=== PATIENT | male | born 1940 | race Caucasian/White ===

== ENCOUNTER → 2018-10-25 13:00 | Outpatient (CLI) | payer OTHER, SELFPAY ==
--- NOTE | 2018-10-25 13:02 | DI.MRI.S_ITS ---
PROCEDURE: MR LUMBAR SPINE WO CON INDICATIONS: back pain TECHNIQUE: Noncontrast sagittal T1 spin echo and T2 fast echo, sagittal STIR, axial T1 and T2 fast spin echo through the lumbar spine. In cases with scoliosis, additional coronal T2 fast spin echo may be performed. COMPARISON: None. FINDINGS: Image quality: Excellent. Alignment and Curvature: Grade 1 retrolisthesis of L1 on L2, L4 and L5. Trace anterolisthesis of L5 on S1 Bone Marrow: No acute fracture. Multilevel degenerative endplate sclerosis and spurring. Diffuse facet arthropathy. Spinal Cord: Conus medullaris terminates at the L1 level. Visualized cord demonstrates normal signal and size. Paraspinous Soft Tissues: Bilateral renal cortical atrophy and scarring. T2 hyperintense presumed right parapelvic cysts although technically nonspecific. L1-L2: No canal or lateral recess narrowing. Mild bilateral foraminal stenoses. Bilateral facet arthropathy L2-L3: Bilateral facet disease. No definite central canal stenosis. Mild bilateral foraminal stenoses L3-L4: Broad-based posterior disc bulge bilateral facet arthropathy. No definite high-grade central canal narrowing. No definite foraminal stenosis L4-L5: Minimal broad-based posterior disc bulge bilateral facet arthropathy. No definite canal stenosis. Mild bilateral foraminal narrowing L5-S1: There is epidural lipomatosis. Mild central canal narrowing. Mild bilateral foraminal stenoses IMPRESSION: Multilevel lumbar spondylosis and facet arthropathy. No high-grade canal stenosis. Mild diffuse bilateral foraminal narrowing as detailed above by spinal level. Dictated by: Kyle Waters M.D. on 10/25/2018 at 15:18 Approved by: Kyle Waters M.D. on 10/25/2018 at 15:24
== END ==
PROVIDERS: PCP Nurse Practitioner; Visit Provider Physical Medicine & Rehabilitation
DX: M54.5 Low back pain (principal); M47.27 Other spondylosis with radiculopathy, lumbosacral region; M47.816 Spondylosis without myelopathy or radiculopathy, lumbar region; M48.061 Spinal stenosis, lumbar region without neurogenic claudication; M48.07 Spinal stenosis, lumbosacral region
CPT/HCPCS: 72148

== ENCOUNTER → 2019-02-05 10:40 | Outpatient (ROUT) | payer MEDICARE, SELFPAY ==
[2019-02-05 10:54] LABS: Hematocrit 33.6 % (41-53); Hemoglobin 11.1 g/dL (13.5-17.5); Mean Corpuscular HGB Conc 32.9 % (30-36); Mean Corpuscular Hemoglobin 30.7 PG (26-34); Mean Corpuscular Volume 93.4 fL (80-100); Platelet Count 226 X10^3/uL (150-400); Red Cell Distribution Width 14.1 % (11.6-14.8); White Blood Cell Count 4.3 X10^3/uL (4.5-11.0)
[2019-02-05 10:55] LABS: Add Manual Diff / Slide Review YES
[2019-02-05 11:13] LABS: Neutrophils Absolute Manual 903 /uL (3000-5900); Total Cells Counted 100
[2019-02-05 11:14] LABS: RBC Morphology Normal Morphology
[2019-02-05 11:42] LABS: Alanine Aminotransferase 91 IU/L (<50); Albumin 3.6 g/dL (3.5-5.0); Albumin Globulin Ratio 1.1 (1.0-2.8); Alkaline Phosphatase 106 U/L (38-126); Aspartate Aminotransferase 54 IU/L (17-59); BUN Creatinine Ratio 21.1 (6-22); Bilirubin Total 0.4 mg/dL (0.2-1.3); Blood Urea Nitrogen 38 mg/dL (9-20); Calcium 9.1 mg/dL (8.4-10.2); Carbon Dioxide 24 mmol/L (22-32); Chloride 108 mmol/L (98-107); Estimated Glomerular Filt Rate 36.7 mL/min (>60); Globulin 3.2 g/dL (1.7-4.1); Glucose 115 mg/dL (80-110); HEMOLYSIS < 15 (0-50); Potassium 5.2 mmol/L (3.4-5.1); Sodium 139 mmol/L (137-145); Total Protein 6.8 g/dL (6.3-8.2)
[2019-02-07 17:37] LABS: CMV DNA, Quant PCR LOG 10 3.33 Log IU/mL; CMV DNA, Quant Real Time PCR 2162 IU/mL; Source BL
== END ==
PROVIDERS: PCP Nurse Practitioner
DX: D70.9 Neutropenia, unspecified (principal); Z94.0 Kidney transplant status; B25.9 Cytomegaloviral disease, unspecified
CPT/HCPCS: 80053; 85025; 87497

== ENCOUNTER → 2019-02-12 10:46 | Outpatient (ROUT) | payer MEDICARE, SELFPAY ==
[2019-02-12 10:59] LABS: Add Manual Diff / Slide Review NO; Basophils Absolute Auto 100 /uL (0-100); Basophils Percent Auto 2.9 % (0-2); Eosinophils Absolute Auto 200 /uL (0-450); Eosinophils Percent Auto 6.1 % (2-4); Hematocrit 32.5 % (41-53); Hemoglobin 10.8 g/dL (13.5-17.5); Lymphocytes Absolute Auto 2300 /uL (1100-4500); Lymphocytes Percent Auto 59.1 % (25-40); Mean Corpuscular HGB Conc 33.4 % (30-36); Mean Corpuscular Hemoglobin 30.8 PG (26-34); Mean Corpuscular Volume 92.2 fL (80-100); Monocytes Absolute Auto 400 /uL (0-900); Neutrophils Absolute Auto 800 /uL (1500-7000); Neutrophils Percent Auto 20.9 % (50-75); Platelet Count 304 X10^3/uL (150-400); Red Blood Cell Count 3.52 X10^6/uL (4.5-5.9); Red Cell Distribution Width 14.2 % (11.6-14.8); White Blood Cell Count 3.8 X10^3/uL (4.5-11.0)
[2019-02-12 11:20] LABS: Alanine Aminotransferase 31 IU/L (<50); Albumin 3.7 g/dL (3.5-5.0); Alkaline Phosphatase 90 U/L (38-126); Aspartate Aminotransferase 26 IU/L (17-59); BUN Creatinine Ratio 22.1 (6-22); Bilirubin Total 0.5 mg/dL (0.2-1.3); Blood Urea Nitrogen 42 mg/dL (9-20); Carbon Dioxide 23 mmol/L (22-32); Chloride 108 mmol/L (98-107); Estimated Glomerular Filt Rate 34.5 mL/min (>60); Globulin 3.8 g/dL (1.7-4.1); Glucose 118 mg/dL (80-110); HEMOLYSIS < 15 (0-50); Potassium 4.5 mmol/L (3.4-5.1); Sodium 140 mmol/L (137-145); Total Protein 7.5 g/dL (6.3-8.2)
[2019-02-14 16:50] LABS: CMV DNA, Quant Real Time PCR 705 IU/mL; Source WHOLE BLOOD EDTA
[2019-02-15 08:43] LABS: CMV DNA, Quant PCR LOG 10 2.85 Log IU/mL
== END ==
PROVIDERS: PCP Nurse Practitioner; Visit Provider Internal Medicine Infectious Disease
DX: B25.9 Cytomegaloviral disease, unspecified (principal); D70.9 Neutropenia, unspecified; Z94.0 Kidney transplant status
CPT/HCPCS: 80053; 85025; 87497

== ENCOUNTER 2019-03-26 06:41 | Outpatient (CLI) | payer OTHER, SELFPAY ==
[2019-03-26] VITALS (8 sets, daily range): BP systolic 126–161; BP diastolic 73–96; PULSE 62–73; RESP 16–20; TEMP 36.4; O2SAT 93–97
--- NOTE | 2019-03-26 06:42 | DI.RAD.S_ITS ---
PROCEDURE: PAIN L/S TRANSFORAMINAL INJECT INDICATIONS: INTERVERTEBRAL DISC DISPLACMENT FINDINGS: Fluoroscopic spot filming was performed to verify placement of spinal needles at the L4-L5 level(s), as labeled on the films. Appropriate location(s) of the needle tip(s) was confirmed by injection of iodinated contrast. IMPRESSION: Fluoroscopy for pain management. Dictated by: Rena Guzmán M.D. on 03/26/2019 at 9:18 Approved by: Rena Guzmán M.D. on 03/26/2019 at 9:20
[2019-03-26] MEDS: MIDAZOLAM 5 MG/5 ML VIAL IV (08:05)
[2019-03-26] MEDS: IOPAMIDOL 15 ML VIAL 3 ML INJ (08:12)
[2019-03-26] MEDS: BETAMETHASONE 30 MG/5 ML MDV 6 MG INJ (08:12)
[2019-03-26] MEDS: BUPIVACAINE 0.25% (PF) VIAL 2 ML INJ (08:12)
[2019-03-26] MEDS: DEXAMETHASONE 10 MG/ML VIAL 20 MG INJ (08:13)
--- NOTE | 2019-03-26 08:14 | PC.NURSE ---
ASSISTING PT OFF TABLE AND TRANSPORTING TO POST PROC AREA IN STABLE CONDITION. PASSING RN CARE OF PT OFF TO [facility].
--- NOTE | 2019-03-26 08:21 | P.PCN_ITS ---
Procedures Date/Time Date of procedure: 03/26/19 Time of procedure: 08:21 General Procedure description: PREOP DIAGNOSIS 1. FORMAINAL STENOSIS WITH LE SYMPTOMS POST OP DIAGNOSIS 1. FORMAINAL STENOSIS WITH LE SYMPTOMS PROCEDURES 1. FLUOROSCOPICALLY GUIDED CONTRAST CONTROLLED TRANSFORAMINAL EPIDURAL STEROID INJECTION - LEFT L4/5 PHYSICIAN: Luis Jaeger DO INDICATIONS: Candelario is referred by Dr. Patel for treatment of Foraminal Stenosis with Left LE Symptoms FINDINGS Foraminal Nerve Root Compression secondary to disc disease and facet hypertrophy DESCRIPTION OF PROCEDURE: Following review of allergy and review of potential side effects and complications, including, but not necessarily limited to, infection, allergic reaction, local tissue breakdown, stroke, temporary or permanent nerve injury, paralysis, and possible , the patient indicated that the patient understood and agreed to proceed. An informed consent document was signed by the patient, witnessed by a nurse, and placed in the patient's chart. Additionally, other treatment options including medications, modalities, and physical therapy were reviewed with the patient. After review of previous anaesthesic history and IV conscious sedation the padma ent was deemed safe to proceed with todays procedure with IV conscious sedation as ASA class II designation. Safety time-out was performed to confirm patient ID, procedure to be performed and site of procedure. IV sedation was accomplished with 2mg of Versed administered by the RN after DO order, titrated to patient comfort during the course of the procedure while the patient remained responsive to all verbal commands In the prone position following sterile prep and drape of the lumbar region, the left L4/5 posterior neuroforamen was identified fluoroscopically. The skin was anesthetized via a 25-gauge 1.5-inch needle with 1% lidocaine solution. At this point, a 25-gauge 3.5-inch spinal needle was atraumatically introduced and advanced under fluoroscopic guidance through the posterior left L4/5 neuroforamen to approximately the anterior aspect of the canal. Depth was confirmed on lateral view. Following negative aspiration, injection of approximately 1.5 cc of Isovue 200 under live fluoroscopy in the AP view confirmed excellent flow along the nerve root, into the epidural space without vascular or intrathecal uptake observed Radiological data, including multiple fluoroscopic views of the lumbosacral spine, reveal a spinal needle at the left L4/5 posterior neuroforamen. Subsequent views show flow of contrast material flowing superiorly and inferiorly along the nerve root confirming epidural flow. Subsequently, a test dose of 1.5 cc of 1% lidocaine solution was administered and patient was observed for two minutes for signs or symptoms of complications, including abdominal pain, shortness of breath, bilateral upper or lower extremity weakness, nausea and vomiting, prior to steroid injection. At this point, a total of 3cc or 20mg of dexamethasone and 6mg of betamethasone was injected without incident. The procedure tolerated the procedure well without signs or symptoms of complications prior to transfer to the recovery area continued monitoring witho ut incident. The patient was then transferred to the recovery area where they were observed for an appropriate time after the injection. The patient reported a VAS score of 7 prior to the procedure and a post- procedure VAS of 0. Total Fluoroscopy Time: 20.9 seconds Total Conscious Sedation Time: 24min POST OP INSTRUCTIONS The patient was provided a Pain Log to continue to record their response to the target-specific procedure prior to follow-up visit with their referring physician. Additionally, specific post-injection care instructions and a contact number to our office were provided if concerns arise regarding possible complications associated with the procedure are suspected. Luis Jaeger DO Complications: none
== END 2019-03-26 08:41 | disposition home or self-care (01) ==
LOC: RAD 06:42
PROVIDERS: PCP Nurse Practitioner; Visit Provider Physical Medicine & Rehabilitation
DX: M48.061 Spinal stenosis, lumbar region without neurogenic claudication (principal); M51.16 Intervertebral disc disorders with radiculopathy, lumbar region
CPT/HCPCS: 64483; 99152; J0702; J1100; J2250; J3010

== ENCOUNTER → 2019-06-04 11:06 | Outpatient (CLI) | payer OTHER, SELFPAY ==
--- NOTE | 2019-06-04 | DI.CT.S_ITS ---
PROCEDURE: CT CHEST WO CON INDICATIONS: Aneurysm TECHNIQUE: Noncontrast 5 mm thick sections acquired from the pulmonary apices to the posterior costophrenic angles. 1 mm lung window, 5 mm thick coronal and sagittal and 7 mm axial MIP reformats were then acquired. For radiation dose reduction, the following was used: automated exposure control, adjustment of mA and/or kV according to patient size. COMPARISON: None. FINDINGS: Image quality: Excellent. Lungs and pleura: Nodule 1: Series 3 image 158; RML; 4 mm; solid Nodule 3: Series 3 image 183; R minor fissure; 6 mm; solid Nodule 3: Series 3 image 196; RRL; 4 mm; solid Nodule 4: Series 3 image 198; LLL; 5 mm; solid No acute air space opacities. No pleural effusions or pneumothorax. Central and peripheral airways are patent and normal in caliber. Mediastinum: Heart size is normal. No pericardial effusion. Mild coronary calcification. No mediastinal adenopathy by size criteria. Thoracic aorta is mildly aneurysmal. The ascending thoracic aorta measures up to 4.4 cm AP x 4.6 cm transverse, tapering to 3.8 cm in the proximal aortic arch. The distal aortic arch measures 3.3 cm. The descending thoracic aorta measuring up to 3.1 cm, tapering to 2.6 cm at the diaphragmatic hiatus. There is mild/moderate atherosclerotic calcifications of aorta. The central pulmonary arteries are normal in size. Esophagus is normal in caliber. Tiny hiatal hernia. Bones and chest wall: No suspicious bony lesions. No vertebral body compression fractures. No axillary or supraclavicular adenopathy by size criteria. Thyroid gland is normal. Abdomen: Visualized upper abdominal solid organs and bowel loops appear normal in the absence of contrast. Kidneys are atrophic bilaterally. IMPRESSION: 1. Mild aneurysmal thoracic aorta. 2. Moderate atherosclerosis. 3. Multiple pulmonary nodules. Please see enclosed followup recommendation. 4. Bilateral renal atrophy. Fleischner Society criteria for SOLID lung nodule followup. Nodule size (mm)Low-risk patientHigh-risk patient?4No follow-up neededFollow-up at 12 mo; if no change, no further follow-up>[id number] CT at 12 mo; if no change, no further follow-up needed.Initial follow-up CT at 6-12 mo, then 18-24 mo if no change. >6-8Initial follow-up CT at 6-12 mo, then 18-24 mo if no change. Initial follow-up CT at 3-6 mo, then 9-12 mo and 24 mo if no change. >8Follow-up CT at 3, 9, 24 mo. Or PET and/or biopsy.Same as for low-risk pts. Dictated by: Rena Guzmán M.D. on 06/04/2019 at 11:53 Approved by: Rena Guzmán M.D. on 06/04/2019 at 18:23
--- NOTE | 2019-06-04 11:12 | DI.CT.S_ITS ---
PROCEDURE: CT HEAD/BRAIN WO CON INDICATIONS: black outs TECHNIQUE: Noncontrast 4.5 mm thick angled axial sections acquired from the foramen magnum to the vertex, with coronal and sagittal reformats. For radiation dose reduction, the following was used: automated exposure control, adjustment of mA and/or kV according to patient size. COMPARISON: None. FINDINGS: Image quality: Excellent. CSF spaces: Basal cisterns are patent. No extra-axial fluid collections. The ventricles are symmetric in size and shape. Brain: No intracranial bleeds or masses. There is moderate cerebral volume loss for age, with resultant ventricular and sulcal prominence. There are moderate periventricular and deep white matter chronic small vessel ischemic changes. There is intracranial internal carotid artery atherosclerosis. Skull and face: Calvarium and visualized facial bones appear intact, without suspicious lesions. Sinuses: Visualized sinuses and mastoids are clear. IMPRESSION: 1. No acute intracranial abnormalities. 2. Cerebral volume loss and chronic microvascular ischemic changes. Dictated by: Rena Guzmán M.D. on 06/04/2019 at 11:33 Approved by: Rena Guzmán M.D. on 06/04/2019 at 11:36
== END ==
PROVIDERS: PCP Nurse Practitioner; Referring Provider Nurse Practitioner; Visit Provider Nurse Practitioner
DX: R55 Syncope and collapse (principal); I65.29 Occlusion and stenosis of unspecified carotid artery; I71.2 Thoracic aortic aneurysm, without rupture; I70.0 Atherosclerosis of aorta; R91.8 Other nonspecific abnormal finding of lung field; N26.1 Atrophy of kidney (terminal); Z01.89 Encounter for other specified special examinations
CPT/HCPCS: 70450; 71250

== ENCOUNTER → 2019-12-25 14:09 | Outpatient (CLI) | payer MEDICARE, OTHER, SELFPAY ==
--- NOTE | 2019-12-25 14:13 | DI.RAD.S_ITS ---
PROCEDURE: XR CLAVICLE RT INDICATIONS: shoulder injury, r/o fx/dislocation TECHNIQUE: 2 views of the clavicle were acquired. COMPARISON: None. FINDINGS: Bones: No fractures. Acromioclavicular joint is widened. Mild acromioclavicular joint osteoarthritic degenerative changes. Soft tissues: No suspicious soft tissue calcifications. IMPRESSION: Acromioclavicular joint is widened to 10 millimeters compatible with type 1 AC joint separation. Dictated by: eKnyatta Sen MD, PhD on 12/25/2019 at 14:35 Approved by: Kenyatta Sen MD, PhD on 12/25/2019 at 14:36
--- NOTE | 2019-12-25 14:13 | DI.RAD.S_ITS ---
PROCEDURE: XR SHOULDER RT MIN 2V INDICATIONS: shoulder injury, r/o fx/dislocation TECHNIQUE: 3 views of the shoulder were acquired. COMPARISON: None. FINDINGS: Bones: No fractures or dislocations. No suspicious bony lesions. Visualized ribs appear intact. Mild acromioclavicular joint and glenohumeral joint osteoarthritis. Soft tissues: No suspicious soft tissue calcifications. IMPRESSION: No fracture. No osseous lesion. If symptoms and/or clinical suspicion for pathology persists, further assessment with repeat radiographs (7-10 days) or advanced imaging (e.g. CT, MRI or bone scan) may be helpful. Dictated by: Kenyatta Sen MD, PhD on 12/25/2019 at 14:34 Approved by: Kenyatta Sen MD, PhD on 12/25/2019 at 14:34
--- NOTE | 2019-12-25 14:13 | DI.RAD.S_ITS ---
PROCEDURE: XR HUMERUS RT 2V INDICATIONS: shoulder injury, r/o fx/dislocation TECHNIQUE: To views of the humerus were acquired. COMPARISON: None. FINDINGS: Bones: No fractures or dislocations. No suspicious bony lesions. Soft tissues: No suspicious soft tissue calcifications. IMPRESSION: No fracture. No osseous lesion. If symptoms and/or clinical suspicion for pathology persists, further assessment with repeat radiographs (7-10 days) or advanced imaging (e.g. CT, MRI or bone scan) may be helpful. Dictated by: Kenyatta Sen MD, PhD on 12/25/2019 at 14:36 Approved by: Kenyatta Sen MD, PhD on 12/25/2019 at 14:38
== END ==
PROVIDERS: PCP Nurse Practitioner; Referring Provider Physician Assistant; Visit Provider Physician Assistant
DX: S49.91XA Unspecified injury of right shoulder and upper arm, initial encounter (principal); M19.011 Primary osteoarthritis, right shoulder; X58.XXXA Exposure to other specified factors, initial encounter
CPT/HCPCS: 73000; 73030; 73060

== ENCOUNTER → 2020-01-08 15:22 | Outpatient (CLI) | payer MEDICARE, OTHER, SELFPAY ==
--- NOTE | 2020-01-08 | DI.MRI.S_ITS ---
PROCEDURE: MR SHOULDER RT WO CON INDICATIONS: Unspecified rotator cuff tear or rupture of right TECHNIQUE: Noncontrast oblique coronal T2 fast spin echo with fat saturation, oblique sagittal T1 spin echo and T2 fast spin echo with fat saturation, axial T1 spin echo and T2 fast spin echo with fat saturation through the shoulder. COMPARISON: None. FINDINGS: Image quality: Excellent. Rotator cuff: Large full-thickness tear of the supraspinatus and infraspinatus tendons is noted measuring approximately 6.4 cm in the AP dimension on sagittal image 13/9. Teres minor tendinopathy and interstitial tearing is present. Subscapularis tendinopathy and thickening noted. Atrophy of the supraspinatus muscle. There is mild fatty infiltration of the infraspinatus muscle Bones and bursae: No bone marrow contusions or fractures. Severe acromioclavicular joint degeneration. Glenohumeral degenerative changes also noted Acromion demonstrates conventional anatomy, without an os acromiale. Moderate joint effusion Capsule and soft tissues: Labrum: Ill-defined fraying of the superior and posterior labrum. Long head of the biceps tendon intact. Partial obliteration of the subcoracoid fat. Coracohumeral ligament intact. IMPRESSION: Large full-thickness tear involving the supraspinatus and infraspinatus tendons. Atrophy of the supraspinatus muscle . Subscapularis tendinopathy and thickening Teres minor tendinopathy and interstitial tearing. Chronic appearing tear and blunting of the superior and posterior labrum, versus advanced degeneration. Joint effusion Dictated by: Kyle Waters M.D. on 01/08/2020 at 17:26 Approved by: Kyle Waters M.D. on 01/08/2020 at 17:31
== END ==
PROVIDERS: PCP Nurse Practitioner; Referring Provider Orthopaedic Surgery; Visit Provider Orthopaedic Surgery
DX: M75.121 Complete rotator cuff tear or rupture of right shoulder, not specified as traumatic (principal); M19.011 Primary osteoarthritis, right shoulder; M25.411 Effusion, right shoulder
CPT/HCPCS: 73221

== ENCOUNTER 2022-08-23 11:33 | Emergency (ER) | payer MEDICARE, OTHER, SELFPAY ==
[2022-08-23] VITALS (15 sets, daily range): BP systolic 152–196; BP diastolic 83–103; PULSE 59–72; RESP 14–27; TEMP 36.7; O2SAT 92–96
--- NOTE | 2022-08-23 11:56 | DI.RAD.S_ITS ---
PROCEDURE: XR SHOULDER RT MIN 2V INDICATIONS: fall TECHNIQUE: 2 views of the shoulder were acquired. COMPARISON: [facility], CR, XR SHOULDER RT MIN 2V, 12/25/2019, 14:12. FINDINGS: Bones: No fractures or dislocations. No suspicious bony lesions. Visualized ribs appear intact. Soft tissues: No suspicious soft tissue calcifications. IMPRESSION: No acute bony abnormality. Dictated by: Jon Painting M.D. on 08/23/2022 at 12:40 Approved by: Jon Painting M.D. on 08/23/2022 at 12:40
--- NOTE | 2022-08-23 11:56 | DI.CT.S_ITS ---
PROCEDURE: CT HEAD/BRAIN WO CON INDICATIONS: fall TECHNIQUE: Noncontrast 4.5 mm thick angled axial sections acquired from the foramen magnum to the vertex, with coronal and sagittal reformats. For radiation dose reduction, the following was used: automated exposure control, adjustment of mA and/or kV according to patient size. COMPARISON: [facility], CT, CT HEAD WITHOUT CONTRAST, 06/07/2021, 14:03. [facility], CT, CT HEAD/BRAIN WO CON, 06/04/2019, 11:10. FINDINGS: Image quality: Excellent. CSF spaces: Basal cisterns are patent. No extra-axial fluid collections. Ventricles are normal in size and shape. Brain: No midline shift. No intracranial masses or hemorrhage. No area of hypodensity in a large vascular distribution to suggest acute infarction. Periventricular hypodensity consistent with chronic microvascular ischemic change. Age-related parenchymal loss. Skull and face: Calvarium and visualized facial bones are intact, without suspicious lesions. Sinuses: Visualized sinuses and mastoids are clear. IMPRESSION: No acute intracranial abnormality. Dictated by: Ruben Decker M.D. on 08/23/2022 at 12:59 Approved by: Ruben Decker M.D. on 08/23/2022 at 13:01
--- NOTE | 2022-08-23 11:56 | DI.RAD.S_ITS ---
PROCEDURE: XR CHEST 1V INDICATIONS: fall TECHNIQUE: One view of the chest was acquired. COMPARISON: None. FINDINGS: Surgical changes and devices: None. Lungs and pleura: Lungs are clear. No pleural effusions or pneumothorax. Mediastinum: Mediastinal contours appear normal. Heart size is enlarged. Bones and chest wall: No suspicious bony lesions. Overlying soft tissues appear unremarkable. IMPRESSION: No displaced fracture or pneumothorax. Dictated by: Jon Painting M.D. on 08/23/2022 at 12:39 Approved by: Jon Painting M.D. on 08/23/2022 at 12:40
--- NOTE | 2022-08-23 11:59 | ED.FALL ---
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 He reports that he was going down the stairs he was carrying his dog he had his hand on the railing when the next thing he knew he would fallen down about 5 stairs to the bottom of the staircase. tried to help get him up he eventually made it up. However he was in severe pain throughout the night. Really complaining of some right shoulder pain. Now he feels dizzy and lightheaded. He is having some cervical pain. No nausea vomiting numbness tingling or weakness. He does take aspirin daily no fever or chills. Related Data Home Medications Medication Instructions Recorded Confirmed Fresh garlic 1 tbsp PO .qday 07/30/18 12/25/19 amlodipine 5 mg tablet 5 mg PO BID 02/27/19 12/25/19 aspirin 81 mg chewable tablet 81 mg PO DAILY 02/27/19 12/25/19 chlorthalidone 25 mg tablet 12.5 mg PO DAILY 02/27/19 12/25/19 multivitamin 1 tab PO DAILY 02/27/19 12/25/19 prednisone 5 mg tablet 5 mg PO DAILY 02/27/19 12/25/19 tacrolimus 1 mg capsule, 2 mg PO Q12H 02/27/19 12/25/19 immediate-release tamsulosin 0.4 mg capsule (Flomax) 0.8 mg PO DAILY 04/09/19 12/25/19 losartan 25 mg tablet 50 mg PO DAILY 08/16/20 08/16/20 Previous Rx's Medication Instructions Recorded benzonatate 200 mg capsule 200 mg PO TID PRN cough #20 caps 08/21/22 Allergies Allergy/AdvReac Type Severity Reaction Status Date / Time lisinopril AdvReac Intermediate Verified 08/23/22 11:49 primidone AdvReac Intermediate Verified 08/23/22 11:49 simvastatin AdvReac Intermediate Verified 08/23/22 11:49 zolpidem [From Ambien] AdvReac Intermediate Verified 08/23/22 11:49 tree pollen Allergy Intermediate Uncoded 08/21/22 12:48 Review of Systems Review of Systems ROS Unobtainable: All systems reviewed & are unremarkable except as noted in HPI and below Patient History Medical History Acromioclavicular joint separation, type 1 Facet arthropathy, lumbar Other intervertebral disc displacement, lumbosacral region Right shoulder injury Family History Mother Heart disease Father Stroke Social History marital status: Smoking Status: Never smoker alcohol intake: former Smoking Status: Never smoker alcohol intake frequency: 0-2 drinks per day Substance Use Type: does not use Exam Initial Vital Signs Initial Vital Signs: Vital Signs Temperature 98.1 F 08/23/22 11:44 Pulse Rate 70 08/23/22 11:44 Respiratory Rate 14 08/23/22 11:44 Blood Pressure 178/83 H 08/23/22 11:44 Pulse Oximetry 94 08/23/22 11:44 Oxygen Delivery Method Room Air 08/23/22 11:44 GENERAL: Alert pleasant well-appearing 82-year-old male HEENT: Head atraumatic,EOMI, pupils reactive, face symmetric, moist mucous membranes NECK: Cervical collar in voice mild vertebral tenderness CARDIOVASCULAR: Regular rate and rhythm without murmurs, rubs or gallops. RESPIRATORY: Breath sounds equal bilaterally, no wheezes rales or rhonchi. ABDOMEN: Soft, nontender. Normoactive bowel sounds all 4 quadrants. No guarding or rebound. EXTREMITIES: Normal range of motion, no clubbing or edema. 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 Course Orders Ordered: ED Orders 08/23/22 11:55 Complete Blood Count AUTO DIFF Stat Comprehensive Metabolic Panel Stat Lipase Stat Troponin & CK Cardiac Panel Stat 08/23/22 11:56 CT head/brain wo con Stat Chest [XR chest 1V] Stat XR shoulder RT min 2V Stat 08/23/22 11:58 EKG-12 Lead Stat 08/23/22 12:31 CT cervical spine wo con Stat Vital Signs Vital signs: Vital Signs - 8 hr 08/23/22 11:44 08/23/22 11:56 08/23/22 11:58 Temperature 98.1 F Pulse Rate 70 72 68 Respiratory Rate 14 25 H Blood Pressure 178/83 H Pulse Oximetry 94 94 94 Oxygen Delivery Method Room Air 08/23/22 11:58 08/23/22 12:00 08/23/22 12:00 Temperature Pulse Rate 69 Respiratory Rate 22 Blood Pressure 188/103 H 174/90 H Pulse Oximetry 94 Oxygen Delivery Method 08/23/22 12:10 08/23/22 12:10 08/23/22 12:20 Temperature Pulse Rate 67 Respiratory Rate 17 Blood Pressure 152/87 H 162/94 H Pulse Oximetry 92 Oxygen Delivery Method 08/23/22 12:20 08/23/22 12:37 08/23/22 12:38 Temperature Pulse Rate 68 72 66 Respiratory Rate 17 26 H 23 Blood Pressure Pulse Oximetry 92 96 95 Oxygen Delivery Method 08/23/22 12:38 08/23/22 12:40 08/23/22 12:40 Temperature Pulse Rate 65 Respiratory Rate 22 Blood Pressure 196/101 H 166/95 H Pulse Oximetry 94 Oxygen Delivery Method 08/23/22 12:50 08/23/22 12:50 08/23/22 13:00 Temperature Pulse Rate 60 Respiratory Rate 27 H Blood Pressure 164/94 H 162/98 H Pulse Oximetry 93 Oxygen Delivery Method 08/23/22 13:00 08/23/22 13:10 08/23/22 13:10 Temperature Pulse Rate 61 62 Respiratory Rate 22 20 Blood Pressure 167/103 H Pulse Oximetry 94 92 Oxygen Delivery Method 08/23/22 13:20 08/23/22 13:20 08/23/22 13:30 Temperature Pulse Rate 68 Respiratory Rate 17 Blood Pressure 167/95 H 165/100 H Pulse Oximetry 93 Oxygen Delivery Method 08/23/22 13:30 08/23/22 13:40 08/23/22 13:40 Temperature Pulse Rate 59 L 60 Respiratory Rate 21 19 Blood Pressure 164/94 H Pulse Oximetry Oxygen Delivery Method MDM - Fall Lab Data 08/23/22 11:55 08/23/22 11:55 Labs: Lab Results 08/23/22 08/23/22 Range/Units 11:55 11:55 WBC 9.7 (4.5-11.0) X10^3/uL RBC 5.30 (4.5-5.9) X10^6/uL Hgb 15.5 (13.5-17.5) g/dL Hct 46.5 (41-53) % MCV 87.7 (80-100) fL MCH 29.2 (26-34) PG MCHC 33.3 (30-36) % RDW 13.7 (11.6-14.8) % Plt Count 213 (150-400) X10^3/uL Neut % (Auto) 68.7 (50-75) % Lymph % (Auto) 21.3 L (25-40) % Alpine % (Auto) 6.9 (3-14) % Eos % (Auto) 2.1 (2-4) % Baso % (Auto) 1.0 (0-2) % Neut # (Auto) 6700 (4993-2491) /uL Lymph # (Auto) 2100 (5237-2835) /uL Alpine # (Auto) 700 (0-900) /uL Eos # (Auto) 200 (0-450) /uL Baso # (Auto) 100 (0-100) /uL Sodium 136 L (137-145) mmol/L Potassium 4.0 (3.4-5.1) mmol/L Chloride 107 (98-107) mmol/L Carbon Dioxide 20 L (22-32) mmol/L BUN 41 H (9-20) mg/dL Creatinine 1.61 H (0.66-1.25) mg/dL Estimated GFR 43 L (>60) mL/min BUN/Creatinine Ratio 25.5 H (6-22) Glucose 126 H (80-110) mg/dL Calcium 9.0 (8.4-10.2) mg/dL Total Bilirubin 0.8 (0.2-1.3) mg/dL AST 20 (17-59) IU/L ALT 28 (<50) IU/L Alkaline Phosphatase 67 (38-126) U/L Total Creatine Kinase 37 L (55-170) U/L CK-MB (CK-2) TNP CK-MB (CK-2) Rel Index TNP Troponin I < 0.012 (0.01-0.034) ng/mL Total Protein 7.3 (6.3-8.2) g/dL Albumin 4.2 (3.5-5.0) g/dL Globulin 3.1 (1.7-4.1) g/dL Albumin/Globulin Ratio 1.4 (1.0-2.8) Lipase 102 (23-300) U/L Imaging Data CT scan - head: Radiologist's Impression: PROCEDURE:? CT HEAD/BRAIN WO CON ? INDICATIONS:? fall ? TECHNIQUE:? Noncontrast 4.5 mm thick angled axial sections acquired from the foramen magnum to the vertex, with coronal and sagittal reformats.? For radiation dose reduction, the following was used:? automated exposure control, adjustment of mA and/or kV according to patient size.? ? COMPARISON:? [facility], CT, CT HEAD WITHOUT CONTRAST, 06/07/2021, 14:03.? [facility], CT, CT HEAD/BRAIN WO CON, 06/04/2019, 11:10. ? FINDINGS:? Image quality:? Excellent.? ? CSF spaces:? Basal cisterns are patent.? No extra-axial fluid collections.? Ventricles are normal in size and shape.? ? Brain:? No midline shift.? No intracranial masses or hemorrhage.? No area of hypodensity in a large vascular distribution to suggest acute infarction. Periventricular hypodensity consistent with chronic microvascular ischemic change. Age-related parenchymal loss. ? Skull and face:? Calvarium and visualized facial bones are intact, without suspicious lesions.? ? Sinuses:? Visualized sinuses and mastoids are clear.? ? IMPRESSION:? No acute intracranial abnormality. ? ? Dictated by: Ruben Decker M.D. on 08/23/2022 at 12:59 ? CT - cervical spine: Radiologist's Impression: PROCEDURE:? CT CERVICAL SPINE WO CON ? INDICATIONS:? fall ? TECHNIQUE:? Noncontrast 3 mm thick sections acquired from the skull base to the T4 level.? Sagittal and coronal reformats were then constructed.? For radiation dose reduction, the following was used:? automated exposure control, adjustment of mA and/or kV according to patient size.? ? COMPARISON:? None. ? FINDINGS:? Image quality:? Excellent.? ? Bones:? No fractures or dislocations.? Mild to moderate degenerative change in the cervical spine.? Visualized superior ribs are intact.? ? Soft tissues:? Prevertebral soft tissues are normal in thickness.? No paravertebral hematomas.? No apical pneumothoraces.? ? ? IMPRESSION:? No acute osseous abnormality. ? ? Dictated by: Ruben Decker M.D. on 08/23/2022 at 13:08 ? ? Approved by: Ruben Decker M.D. on 08/23/2022 at 13:10 ? Extremity x-ray #1: Radiologist's Impression: PROCEDURE:? XR SHOULDER RT MIN 2V ? INDICATIONS:? fall ? TECHNIQUE:? 2 views of the shoulder were acquired.? ? COMPARISON:? [facility], , XR SHOULDER RT MIN 2V, 12/25/2019, 14:12. ? FINDINGS:? ? Bones:? No fractures or dislocations.? No suspicious bony lesions.? Visualized ribs appear intact.? ? Soft tissues:? No suspicious soft tissue calcifications.? ? IMPRESSION:? No acute bony abnormality.? Dictated by: Jon Painting M.D. on 08/23/2022 at 12:40 ? Chest x-ray: Radiologist's Impression: PROCEDURE:? XR CHEST 1V ? INDICATIONS:? fall ? TECHNIQUE:? One view of the chest was acquired.? ? COMPARISON:? None. ? FINDINGS:? ? Surgical changes and devices:? None.? ? Lungs and pleura:? Lungs are clear.? No pleural effusions or pneumothorax.? ? Mediastinum:? Mediastinal contours appear normal.? Heart size is enlarged.? ? Bones and chest wall:? No suspicious bony lesions.? Overlying soft tissues appear unremarkable.? ? IMPRESSION:? No displaced fracture or pneumothorax. ? ? ? Dictated by: Jon Painting M.D. on 08/23/2022 at 12:39 ? ? [facility] Narrative Medical decision making narrative: Patient 82-year-old male who presents after what like a possible mechanical fall yesterday down stairs. Complaining of right shoulder pain. And some neck pain. Imaging head cervical spine chest x-ray and shoulder do not show any abnormality. Blood work is overall reassuring. No need for any further workup today. No evidence of infection. Creatinine is actually improved from previous today 1.6 previously 1.9. No significant leukocytosis or electrolyte abnormality. At this time it sounds the patient had a mechanical fall without any significant injury. He does not want anything more than Tylenol for pain. Discharge Plan Departure Patient Disposition: Home Clinical Impression: Sprain of shoulder, right, Cervical sprain Instructions: Whiplash, DI for Shoulder Sprain Activity Restrictions/Additional Instructions: *You have been diagnosed with cervical strain, right shoulder sprain *What to do: At this time no injuries blood work is reassuring, expect to be sore for the next couple of days. Increase activity as tolerated strenuous activity not recommended some movement will help *Continue to take medications as directed Tylenol as needed for pain *Follow up with your primary care provider in 2-3 days or call [phone] *Return to ER if you should have increasing pain numbness tingling weakness confusion or any new, worsening or concerning symptoms Prescriptions: No Action benzonatate 200 mg capsule 200 mg PO TID PRN (Reason: cough) Qty: 20 0RF Fresh garlic 1 tbsp PO .qday tacrolimus 1 mg capsule 2 mg PO Q12H prednisone 5 mg tablet 5 mg PO DAILY multivitamin Tablet 1 tab PO DAILY chlorthalidone 25 mg tablet 12.5 mg PO DAILY amlodipine 5 mg tablet 5 mg PO BID aspirin 81 mg tablet,chewable 81 mg PO DAILY tamsulosin [Flomax] 0.4 mg capsule 0.8 mg PO DAILY losartan 25 mg tablet 50 mg PO DAILY Referrals: Sangeeta Patel ARNP [Primary Care Provider] - Stand Alone Forms: Patient Portal/API
[2022-08-23 12:06] LABS: Add Manual Diff / Slide Review NO; Basophils Absolute Auto 100 /uL (0-100); Eosinophils Absolute Auto 200 /uL (0-450); Eosinophils Percent Auto 2.1 % (2-4); Hematocrit 46.5 % (41-53); Hemoglobin 15.5 g/dL (13.5-17.5); Lymphocytes Absolute Auto 2100 /uL (1100-4500); Lymphocytes Percent Auto 21.3 % (25-40); Mean Corpuscular HGB Conc 33.3 % (30-36); Mean Corpuscular Hemoglobin 29.2 PG (26-34); Mean Corpuscular Volume 87.7 fL (80-100); Monocytes Absolute Auto 700 /uL (0-900); Monocytes Percent Auto 6.9 % (3-14); Neutrophils Absolute Auto 6700 /uL (1500-7000); Neutrophils Percent Auto 68.7 % (50-75); Platelet Count 213 X10^3/uL (150-400); Red Cell Distribution Width 13.7 % (11.6-14.8); White Blood Cell Count 9.7 X10^3/uL (4.5-11.0)
[2022-08-23 12:18] LABS: Alanine Aminotransferase 28 IU/L (<50); Albumin 4.2 g/dL (3.5-5.0); Albumin Globulin Ratio 1.4 (1.0-2.8); Alkaline Phosphatase 67 U/L (38-126); Aspartate Aminotransferase 20 IU/L (17-59); BUN Creatinine Ratio 25.5 (6-22); Bilirubin Total 0.8 mg/dL (0.2-1.3); Blood Urea Nitrogen 41 mg/dL (9-20); Carbon Dioxide 20 mmol/L (22-32); Chloride 107 mmol/L (98-107); Creatine Kinase 37 U/L (55-170); Estimated Glomerular Filt Rate 43 mL/min (>60); Globulin 3.1 g/dL (1.7-4.1); Glucose 126 mg/dL (80-110); HEMOLYSIS 18 (0-50); Lipase 102 U/L (23-300); Sodium 136 mmol/L (137-145); Total Protein 7.3 g/dL (6.3-8.2)
[2022-08-23 12:29] LABS: Troponin I < 0.012 ng/mL (0.01-0.034)
--- NOTE | 2022-08-23 12:31 | DI.CT.S_ITS ---
PROCEDURE: CT CERVICAL SPINE WO CON INDICATIONS: fall TECHNIQUE: Noncontrast 3 mm thick sections acquired from the skull base to the T4 level. Sagittal and coronal reformats were then constructed. For radiation dose reduction, the following was used: automated exposure control, adjustment of mA and/or kV according to patient size. COMPARISON: None. FINDINGS: Image quality: Excellent. Bones: No fractures or dislocations. Mild to moderate degenerative change in the cervical spine. Visualized superior ribs are intact. Soft tissues: Prevertebral soft tissues are normal in thickness. No paravertebral hematomas. No apical pneumothoraces. IMPRESSION: No acute osseous abnormality. Dictated by: Ruben Decker M.D. on 08/23/2022 at 13:08 Approved by: Ruben Decker M.D. on 08/23/2022 at 13:10
== END 2022-08-23 14:06 | disposition home or self-care (01) ==
PROVIDERS: Emergency Provider Emergency Medicine; PCP Nurse Practitioner
DX: S43.401A Unspecified sprain of right shoulder joint, initial encounter (principal); S13.4XXA Sprain of ligaments of cervical spine, initial encounter; R42 Dizziness and giddiness; R03.0 Elevated blood-pressure reading, without diagnosis of hypertension; W10.9XXA Fall (on) (from) unspecified stairs and steps, initial encounter
CPT/HCPCS: 70450; 71045; 72125; 73030; 80053; 82550; 83690; 84484; 85025; 93005; 93010; 99284

== ENCOUNTER → 2023-03-27 12:46 | Outpatient (CLI) | payer MEDICARE, OTHER, SELFPAY ==
--- NOTE | 2023-03-27 12:48 | DI.MRI.S_ITS ---
PROCEDURE: MR SHOULDER RT WO CON INDICATIONS: STRAIN OF RIGHT SHOULDER TECHNIQUE: Noncontrast oblique coronal T2 fast spin echo with fat saturation, oblique sagittal T1 spin echo and T2 fast spin echo with fat saturation, axial T1 spin echo and T2 fast spin echo with fat saturation through the shoulder. COMPARISON: [facility], MR, MR SHOULDER RT WO CON, 01/08/2020, 16:03. FINDINGS: Image quality: Excellent. Rotator cuff: There is full-thickness rupture of distal supraspinatus and infraspinatus at their insertions on humeral head with up to 4.3 cm medial retraction of torn tendon fibers to the level of acromioclavicular joint. Low-grade intrasubstance partial-thickness tear involving distal subscapularis is seen. Sagittal images demonstrate moderate to severe supraspinatus, infraspinatus and teres minor muscle atrophy. Bones and bursae: No bone marrow contusions or fractures. [id number] acromioclavicular joint osteoarthritic changes are seen with joint space narrowing, subchondral sclerosis and downward osteophyte formation depressing the musculotendinous junction of supraspinatus. Superior migration of humeral head in relation to glenoid is noted. The acromion demonstrates conventional anatomy, without an os acromiale. Moderate joint effusion and subacromial subdeltoid bursal fluid is seen, no gross loose bodies. Capsule and soft tissues: Fraying of superior anterior labrum with T2 hyperintense signal at 12 to 2 o'clock position is seen concerning for superior anterior labral tear. The long head of the biceps tendon demonstrates normal location and morphology. The rotator interval appears normal, without fibrosis. The coracohumeral ligament is normal in thickness. IMPRESSION: 1. Full-thickness rupture of distal supraspinatus and infraspinatus at their insertions on the humeral head with up to 4.3 cm medial retraction of torn tendon fibers to the level of acromioclavicular joint. Low-grade intrasubstance partial-thickness tear involving distal subscapularis. Moderate to severe supraspinatus, infraspinatus and teres minor muscle atrophy. 2. [id number] acromioclavicular joint osteoarthritis. No acute fracture or dislocation. Moderate joint effusion and subacromial subdeltoid bursal fluid. No gross loose bodies. 3. Suggestion of superior anterior labral tear at 12 to 2 o'clock position. Dictated by: Rafal Gao M.D. on 03/27/2023 at 14:59 Approved by: Rafal Gao M.D. on 03/27/2023 at 15:06
== END ==
LOC: MRI 12:47
PROVIDERS: PCP Nurse Practitioner; Referring Provider Orthopaedic Surgery; Visit Provider Orthopaedic Surgery
DX: S46.011A Strain of muscle(s) and tendon(s) of the rotator cuff of right shoulder, initial encounter (principal); M19.011 Primary osteoarthritis, right shoulder; M25.411 Effusion, right shoulder; X58.XXXA Exposure to other specified factors, initial encounter
CPT/HCPCS: 73221

== ENCOUNTER → 2023-03-29 14:20 | Outpatient (CLI) | payer MEDICARE, OTHER, SELFPAY ==
[2023-03-29 15:33] LABS: Add Manual Diff / Slide Review NO; Basophils Absolute Auto 0 /uL (0-100); Basophils Percent Auto 0.6 % (0-2); Eosinophils Absolute Auto 100 /uL (0-450); Eosinophils Percent Auto 1.3 % (2-4); Hematocrit 46.2 % (41-53); Hemoglobin 15.5 g/dL (13.5-17.5); Lymphocytes Absolute Auto 2100 /uL (1100-4500); Lymphocytes Percent Auto 26.6 % (25-40); Mean Corpuscular HGB Conc 33.5 % (30-36); Mean Corpuscular Hemoglobin 29.8 PG (26-34); Monocytes Absolute Auto 700 /uL (0-900); Monocytes Percent Auto 8.6 % (3-14); Neutrophils Absolute Auto 5000 /uL (1500-7000); Neutrophils Percent Auto 62.9 % (50-75); Platelet Count 204 X10^3/uL (150-400); Red Blood Cell Count 5.19 X10^6/uL (4.5-5.9); Red Cell Distribution Width 13.9 % (11.6-14.8); White Blood Cell Count 7.9 X10^3/uL (4.5-11.0)
[2023-03-29 15:52] LABS: Blood Urea Nitrogen 49 mg/dL (9-20); Calcium 9.4 mg/dL (8.4-10.2); Carbon Dioxide 20 mmol/L (22-32); Chloride 107 mmol/L (98-107); Estimated Glomerular Filt Rate 40 mL/min (>60); Glucose 135 mg/dL (80-110); HEMOLYSIS < 15 (0-50); Potassium 4.2 mmol/L (3.4-5.1); Sodium 138 mmol/L (137-145)
== END ==
LOC: LAB 14:22
PROVIDERS: PCP Nurse Practitioner; Referring Provider Orthopaedic Surgery; Visit Provider Orthopaedic Surgery
DX: Z01.818 Encounter for other preprocedural examination (principal); Z01.812 Encounter for preprocedural laboratory examination
CPT/HCPCS: 36415; 80048; 85025; 93005; 93010

== ENCOUNTER → 2023-04-19 13:15 | Outpatient (CLI) | payer MEDICARE, OTHER, SELFPAY ==
--- NOTE | 2023-04-19 13:17 | DI.CT.S_ITS ---
PROCEDURE: CT SHOULDER RIGHT WITHOUT CON INDICATIONS: Rotator cuff tear or rupture of right shoulder TECHNIQUE: Noncontrast 1-1.5 mm thick sections acquired from the acromioclavicular joint to the inferior scapula, with coronal and sagittal reformatting. COMPARISON: None. FINDINGS: Image quality: Excellent. Bones: Moderate acromioclavicular joint osteoarthritic changes are seen with joint space narrowing, subchondral sclerosis and downward osteophyte formation. Moderate glenohumeral joint osteoarthritic changes also seen with joint space narrowing, subchondral sclerosis and marginal osteophyte formation. No acute fracture or dislocation. No suspicious bony lesions. The visualized right upper ribs are intact. Soft tissues: There is superior migration of humeral head in relation to glenoid with near complete loss of subacromial space concerning for full-thickness rupture of distal supraspinatus. Sagittal views shows moderate supraspinatus muscle atrophy and mild to moderate infraspinatus and teres minor muscle atrophy. No abnormal soft tissue calcifications. Moderate right shoulder joint effusion and subacromial subdeltoid bursal fluid is seen, no calcified intra-articular loose bodies. No axillary lymphadenopathy is seen. IMPRESSION: 1. 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 No shoulder fracture or dislocation. No suspicious bony lesions. 2. Superior migration of humeral head in relation to glenoid with markedly narrowed subacromial space which can be seen associated with distal rotator cuff tendon rupture. Moderate supraspinatus muscle atrophy and mild to moderate infraspinatus and teres minor muscle atrophy. 3. Moderate joint effusion and subacromial subdeltoid bursal fluid, no gross loose bodies. No abnormal soft tissue calcifications. Dictated by: Rafal Gao M.D. on 04/19/2023 at 15:58 Approved by: Rafal Gao M.D. on 04/19/2023 at 16:01
== END ==
PROVIDERS: PCP Nurse Practitioner; Referring Provider Orthopaedic Surgery; Visit Provider Orthopaedic Surgery
DX: M75.121 Complete rotator cuff tear or rupture of right shoulder, not specified as traumatic (principal); M19.011 Primary osteoarthritis, right shoulder; M25.411 Effusion, right shoulder
CPT/HCPCS: 73200

== ENCOUNTER 2023-06-29 10:50 | Day surgery (SDC) | payer MEDICARE, OTHER, SELFPAY ==
[2023-06-19 09:19] VITALS: BMI 33.1
[2023-06-29] VITALS (18 sets, daily range): BP systolic 107–150; BP diastolic 68–88; PULSE 72–97; RESP 12–20; TEMP 36.1–37; O2SAT 92–95; BMI 31.8
--- NOTE | 2023-06-29 06:00 | DI.RAD.S_ITS ---
PROCEDURE: XR SHOULDER RT MIN 2V INDICATIONS: TSA TECHNIQUE: 1 views of the shoulder were acquired. COMPARISON: [facility], CR, XR SHOULDER RT MIN 2V, 08/23/2022, 12:13. FINDINGS: Evaluation is markedly limited on single view. 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 Soft tissues: Postsurgical changes about the right shoulder. No suspicious soft tissue calcifications. Patchy consolidation in the right lung base. IMPRESSION: Evaluation is markedly limited on a single view. 1. 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 Postsurgical changes about the right shoulder. 2. Patchy consolidation in the right lung base, likely atelectasis. Dictated by: Ashley Pena M.D. on 06/29/2023 at 22:44 Approved by: Ashley Pena M.D. on 06/29/2023 at 22:46
[2023-06-29] MEDS: LACTATED RINGERS 1,000 ML 42 ML IV ×2 (11:11→14:20)
[2023-06-29] MEDS: ACETAMINOPHEN 325 MG TABLET 975 MG PO (11:30)
--- NOTE | 2023-06-29 12:28 | PM.PREOP ---
Pre-operative Note Interval Note History & Physical reviewed/Exam performed by Physician: Yes Changes to H&P: No
[2023-06-29] MEDS: CEFAZOLIN 2 GM/100 ML PREMIX 100 ML IV (13:15)
--- NOTE | 2023-06-29 13:38 | SUR.OPER ---
Beach chair with [employer] shoulder positioner. Lower body on padded OR bed. Head in foam padded head cradle, secured with straps. Non-operative arm secured <90 degrees abduction. Pillow under knees. Safety belt at thigh. Cloth tape over blanket over lower legs.
[2023-06-29] MEDS: TRANEXAMIC ACID 1,000 MG VIAL 1000 MG INJ (13:47)
[2023-06-29] MEDS: BUPIVACAINE 0.25% (PF) 30 ML, EPINEPHrine 0.15 MG INJ (13:49)
--- NOTE | 2023-06-29 15:11 | PM.OP.1 ---
Operative Date/Time/Diagnoses Date of procedure: 06/29/23 Time of procedure: 15:12 Pre-op diagnosis: Right a repairable rotator cuff Post-op diagnosis: same Procedure & Clinicians Procedure: Right reverse total shoulder arthroplasty Same procedure as scheduled: Yes Indications: Indications: This is a 83-year-old male who has rotator cuff arthropathy. Symptoms have been present for years, insidious onset. Patient has failed a reasonable attempt at conservative therapy. After extensive discussion in clinic, they wished to go forward with surgery. Risks and benefits were described including the risk of infection, bleeding, damage to internal structures including nerves. We also discussed the risk of failure of surgery and the need for revision surgery as well as the risk of anesthesia. The patient expressed understanding with these risks and wished to go forward with surgery. Surgeon: Flo Garcias Cardiology Coordinator: Alem Bocanegra Anesthesia Type: General Operative Notes Findings: Findings: Deficient rotator cuff as noted on preoperative imaging and under direct visualization Closure Type: primary Prosthetic devices, grafts, tissues, transplants, or devices: Tornier implants Base plate: 29, +3 mm offset Glenosphere: 39 Stem: Perform 4 Poly: +0 concentric Estimated Blood Loss (mL): 50 Procedure in detail: Patient was seen in the preoperative holding unit. The correct right shoulder was identified and marked with my initials. Again we discussed the risks and benefits of surgery and they wished to go forward with surgery. The patient was brought back to the operating room and placed supine on the operating table. Smooth endotracheal intubation was performed by anesthesia. All prominences were padded and they were placed into the beach chair position. Intravenous antibiotics were given. The right shoulder was then prepped with the standard sterile preparation and draping. A time-out was then performed in my initials were again identified on the correct shoulder. 1 g of IV tranexamic acid was given. A standard deltopectoral incision was made. Skin flaps were made. The cephalic vein was identified and retracted laterally. This was protected throughout the remainder of the case. Sharp dissection was made along the deltoid, subacromial and subcoracoid space to release adhesions. The conjoined tendon was identified and the axillary nerve was palpated and continuous using the tug test. It was protected throughout the remainder of the case. A brown retractor was placed underneath the deltoid muscle and a darach retractor underneath the conjoint tendon. The subscapularis muscle was ntoed to be intact. The anterior circumflex artery and associated veins on the lower border of the subscapularis were identified and tied off using 0-Vicryl. The biceps tendon was identified in the bicipital groove. This was released from its sheath, and taken from its origin on the glenoid and tied into the pectoralis tendon for a solid tenodesis. We then began a subscapularis peel. The subscapularis was tagged with an Ethibond suture. A 360 degree circumferential release of the subscapularis was performed with protection of the axillary nerve. The coracohumeral ligament was released at the base of the coracoid. The shoulder was then dislocated. Osteophytes were removed using combination of rongeur and osteotome. The rotator cuff was noted to be insufficient. An intramedullary guide was used set at version of 20?. Using an oscillating saw a conservative humeral head cut was made. Impaction reamers were reamed up to a size 4 stem with a built-in angle 135?. A neck protector was placed. Attention was then turned to the glenoid. After retracting the humeral head posteriorly a circumferential release was performed of the capsule with protection of the axillary nerve. The labrum was then released starting at the biceps anchor and going around the rim a small amount of triceps was released from the inferior glenoid. A center guide pin was then placed using the guide, followed by Reamer. After adequate cartilage was removed the boss was reamed and the centeral hole was drilled and measured. The base plate was then implanted and screwed into place. The peripheral screws were then sequentially drilled, measured, and placed. A 39 glenosphere was then selected and screwed into place onto the base plate. Turning back to the humerus, the humeral head was delivered and trialed with a 0 concentric. The arm was taken through range of motion and this was felt to be stable. The trial was then removed and a dilute Betadine wash was then performed with 1 L of sterile saline. Before placing the final implant, drill holes were made in the bicipital groove for the subscapularis repair, and sutures were passed through the drill holes. The final stem was then impacted into the humerus. The shoulder was then reduced and again brought through range of motion and was felt to be stable. The subscapularis was then repaired using a modified racking hitch with nice loupes. The skin was closed with 2-0 vicryl and 3-0 Monocryl followed by Aquacel dressing. Patient was awoken from anesthesia and brought back to the postoperative recovery unit without issue. They were placed into a sling. Assisting participation: This operation could not have been safely performed (without compromising the technical results or length of the procedure) without the assistance of a skilled real estate administrative assistant. The real estate administrative assistant was medically necessary for proper positioning, retraction and manipulation of instruments, proper exposure, graft prep, and manipulation of tissue. Complications: none Post-operative Condition: stable Disposition: PACU Plan for aftercare: Postoperative instructions: Sling to remain on for 6 weeks. No external rotation past neutral for 6 weeks. Okay for the sling to come off for shower. Okay to shower over the Aquacel dressing. If any water gets underneath the dressing, remove the dressing. First postoperative visit in 2 weeks.
--- NOTE | 2023-06-29 16:04 | SUR.PHASEII ---
Addendum entered by Vanita Genao R.N. 06/29/23 16:06: Pt on cont pulse oximitry Original Note: Pt to Phase II on oxygen. Trial of 2L NC with patient at 90%. Placed back to 3L NC. Using IS up to 1000ml to 1200ml. Lungs clear.
--- NOTE | 2023-06-29 16:54 | SUR.PHASEII ---
Pt up to chair. Room air sat 87-88%. Placed back on 2L NC with 92%. Dr Higgins and Dr Vale notified. See orders for transfer to floor. and patient updated.
--- NOTE | 2023-06-29 17:30 | SUR.PHASEII ---
SBAR report called to Landry CORREA. Pt to be transferred by Omari CORREA on 3L O2 NC. With belongings.
--- NOTE | 2023-06-29 18:53 | PC.NURSE ---
PATIENTS RIGHT ARM PLACED ON PILLOWS WHILE IN BED,PATIENT HAS GOOD CAP FILL AND IS TIGLING AND WAKING UP. NASAL CANNULA AT 2L SATS 96%
[2023-06-29] MEDS: MYCOPHENOLATE SODIUM 360 MG 360 EACH PO (21:01)
[2023-06-29] MEDS: LOSARTAN 25 MG TABLET 50 MG PO (21:01)
[2023-06-29] MEDS: TACROLIMUS 0.5 MG CAPSULE 2 MG PO (21:02)
[2023-06-29] MEDS: TAMSULOSIN 0.4 MG CAPSULE 0.8 MG PO (21:02)
[2023-06-29] MEDS: ASPIRIN EC 81 MG TABLET PO (21:02)
[2023-06-29] MEDS: CEFAZOLIN VIAL 1 GM in SODIUM CHLORIDE 0.9% 100 ML IV (21:02)
[2023-06-29] MEDS: ACETAMINOPHEN 325 MG TABLET 650 MG PO (23:52)
[2023-06-30 00:42] VITALS: BP 137/87; PULSE 73; RESP 16; TEMP 36.1; O2SAT 95
[2023-06-30] MEDS: OXYCODONE IR 5 MG TABLET PO (01:09)
[2023-06-30] MEDS: CEFAZOLIN VIAL 1 GM in SODIUM CHLORIDE 0.9% 100 ML IV (04:44)
[2023-06-30 05:59] VITALS: BP 146/82; PULSE 78; RESP 18; TEMP 36.4; O2SAT 95
[2023-06-30 06:08] LABS: Hematocrit 41.4 % (41-53); Hemoglobin 13.7 g/dL (13.5-17.5); Mean Corpuscular HGB Conc 33.1 % (30-36); Mean Corpuscular Hemoglobin 29.2 PG (26-34); Mean Corpuscular Volume 88.3 fL (80-100); Platelet Count 179 X10^3/uL (150-400); Red Blood Cell Count 4.69 X10^6/uL (4.5-5.9); Red Cell Distribution Width 13.7 % (11.6-14.8); White Blood Cell Count 10.2 X10^3/uL (4.5-11.0)
--- NOTE | 2023-06-30 06:49 | PM.DS.1 ---
History of Present Illness History of Present Illness Date Patient Seen: 06/30/23 Time Patient Seen: 06:49 Chief complaint: RT TSA Narrative: Operative Date/Time/Diagnoses Date of procedure: 06/29/23 Time of procedure: 15:12 Pre-op diagnosis: Right a repairable rotator cuff Post-op diagnosis: same Procedure & Clinicians Procedure: Right reverse total shoulder arthroplasty Same procedure as scheduled: Yes Indications: Indications: This is a 83-year-old male who has rotator cuff arthropathy. Symptoms have been present for years, insidious onset. Patient has failed a reasonable attempt at conservative therapy. After extensive discussion in clinic, they wished to go forward with surgery. Risks and benefits were described including the risk of infection, bleeding, damage to internal structures including nerves. We also discussed the risk of failure of surgery and the need for revision surgery as well as the risk of anesthesia. The patient expressed understanding with these risks and wished to go forward with surgery. Surgeon: Flo Garcias [employer] Miss[employer] Checkout Technician: Alem Bocanegra Anesthesia Type: General Operative Notes Findings: Findings: Deficient rotator cuff as noted on preoperative imaging and under direct visualization Closure Type: primary Prosthetic devices, grafts, tissues, transplants, or devices: Tornier implants Base plate: 29, +3 mm offset Glenosphere: 39 Stem: Perform 4 Poly: +0 concentric Estimated Blood Loss (mL): 50 Discharge Providers Provider Date of admission: 06/29/23 Discharge Date: 06/30/23 Primary care physician: CHET Garcia Consults: 06/29/23 06:00 Consult to Anesthesiology Routine Comment: Consulting Provider: Anesthesiologist Reason for consultation: Regional block for post operative pain control Has provider been notified: No 06/29/23 17:30 Consult to Discharge Planning Routine Comment: Consult to Physical Therapy Evaluate & Treat Comment: Physician Instructions: Evaluate and Treat Discharge provider: Haroon Abrams PA-C Summary Hospital Course Discharge Diagnosis: Status post right reverse total shoulder arthroplasty Hospital Course: Multi-modal pain control Status at Discharge Cognitive/behavioral status at discharge: oriented Functional status at discharge: independent ambulation Overall status at discharge: patient is back to baseline Time Spent with Patient Time spent: Less than 30 minutes Exam Vital Signs (past 8 hours): - 06/30/23 00:42 06/30/23 05:59 Temperature 96.9 F L 97.6 F Pulse Rate 73 78 Respiratory Rate 16 18 Blood Pressure 137/87 146/82 H Pulse Oximetry 95 95 Oxygen Flow Rate 3 3 Fraction of Inspired Oxygen 32 SaO2/FiO2 Ratio 287 Oxygen Delivery Method Nasal Cannula Oxygen Flow Rate 3 Narrative Exam Narrative: Kodi was found lying comfortably in his bed with his CPAP on. His post operative pain was controlled with oral medications. He denies any numbness or tingling down his right arm. Dressing appears clean and dry. ARC 2.0 immobilizer is on. Able to flex and extend all fingers and lateralize the index finger. Sensation intact of the right arm to light touch. Resp Effort & Inspection: normal respiratory effort and able to speak in complete sentences Objective Labs 06/30/23 05:55 Labs: Laboratory Results - last 24 hr 06/30/23 05:55 WBC 10.2 RBC 4.69 Hgb 13.7 Hct 41.4 MCV 88.3 MCH 29.2 MCHC 33.1 RDW 13.7 Plt Count 179 PFSH Medical History (Updated 06/19/23 @ 10:23 by Ruby Agrawal RN) Alcoholism in recovery Hearing impaired History of renal dialysis AV fistula HLD (hyperlipidemia) HTN (hypertension) BPH (benign prostatic hyperplasia) GERD (gastroesophageal reflux disease) Actinic keratosis Depression Sleep apnea Thoracic aortic aneurysm without rupture (01/2023) Chronic kidney disease Multiple pulmonary nodules Tremor History of Mohs micrographic surgery for skin cancer SCC (squamous cell carcinoma) 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) Pre-diabetes Poor memory Exposure to potentially hazardous substance Secondary polycythemia Acromioclavicular joint separation, type 1 Right shoulder injury Facet arthropathy, lumbar Other intervertebral disc displacement, lumbosacral region Surgical History (Updated 06/19/23 @ 10:22 by Ruby Agrawal RN) H/O vasectomy (1980) History of back surgery 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 Post operative medications have already been received from pre-op visit and he was instructed in their use. ASA 81mg bid for 30 days for VTE prophylaxis. Start outpatient PT in 5 to 10 days. When not in PT, keep shoulder immobilzered in ARC 2.0 [place] 2 [place] [facility] [place]. Discharge Plan Discharge Plan Patient Disposition: Home Discharge orders & Medications Discharge Orders: Discharge (Order); Ordered 06/30/23 Ordered By: Haroon Abrams Prescriptions: New aspirin 81 mg Tablet,Delayed Release (Dr/Ec) 81 mg PO BID Qty: 60 0RF Continued magnesium oxide 420 mg Tablet 420 mg PO DAILY tacrolimus 0.5 mg Capsule 0.5 mg PO QAM mycophenolate sodium 360 mg Tablet,Delayed Release (Dr/Ec) 360 mg PO BID cholecalciferol (vitamin D3) [Vitamin D3] 50 mcg (2,000 unit) Tablet 50 mcg PO DAILY tacrolimus 1 mg capsule 1 mg PO SEEINSTR Patient Comments: 1mg qam, 2mg qpm prednisone 5 mg tablet 5 mg PO DAILY multivitamin Tablet 1 tab PO DAILY chlorthalidone 25 mg tablet 12.5 mg PO DAILY tamsulosin [Flomax] 0.4 mg capsule 0.8 mg PO BEDTIME losartan 25 mg tablet 50 mg PO BID Discontinued aspirin 81 mg Capsule 81 mg PO DAILY Follow up/Referrals: Sangeeta Patel ARNP [Primary Care Provider] - Diet/Activity/Treatments Diet: Diet as Tolerated Cold/Heat Therapy: Ice as tolerated for pain relief. Skin/Wound/Dressing Care Report to your healthcare provider any signs of infection, such as:: chills, fever, night sweats, unusual drainage and unusual redness Dressing: Aquacel dressing to remain on for 2 weeks. This will be removed in clinic as well as the underlying mari. Okay to shower with soap and water running over top of the dressing. NOTE: If water gets underneath the dressing, please remove the dressing and replace with clean dry 4x4s. Visit Report/Discharge Packet Instructions: DI for Shoulder Replacement Stand Alone Forms: Patient Portal/API, Surgery Discharge Discharge Data Primary Care Provider: Sangeeta Patel Attending Provider: Flo Garcias VTE Deep Vein Thrombosis/Pulmonary Embolism Present on Admission: No
[2023-06-30 07:00] VITALS: O2SAT 94
[2023-06-30 08:00] VITALS: BP 138/73; PULSE 71; RESP 16; TEMP 36.6; O2SAT 94
[2023-06-30] MEDS: TRAMADOL 50 MG TABLET PO (08:27)
[2023-06-30] MEDS: TACROLIMUS 0.5 MG CAPSULE 1.5 MG PO (08:53)
[2023-06-30] MEDS: predniSONE 5 MG TABLET PO (08:53)
[2023-06-30] MEDS: MYCOPHENOLATE SODIUM 360 MG 360 EACH PO (08:53)
[2023-06-30] MEDS: MULTIVITAMIN 1 TABLET 1 TAB PO (08:53)
[2023-06-30] MEDS: MAGNESIUM OXIDE 400 MG TABLET PO (08:53)
[2023-06-30] MEDS: CHOLECALCIFEROL (VITAMIN D3) 1,000 UNIT TABLET 2000 UNIT PO (08:53)
[2023-06-30] MEDS: CHLORTHALIDONE 25 MG TABLET 12.5 MG PO (08:53)
[2023-06-30] MEDS: ASPIRIN EC 81 MG TABLET PO (08:53)
[2023-06-30 08:54] VITALS: BP 138/73; PULSE 71
[2023-06-30] MEDS: LOSARTAN 25 MG TABLET 50 MG PO (08:54)
--- NOTE | 2023-06-30 08:56 | CM.DANOTE ---
DCP Assessment Note Pt is a 83yo M, resident of [place], presented s/p a R TSA with Dr. Garcias. Pt lives with his , Kayla. PCP: Sangeeta Patel Payor: Medicare and [facility] Reviewed chart and collaborated with RN for pt's medical status and discharge needs. Pt has a discharge order on 06.30.23. BASTER HAND met w/patient at bedside; introduced self and role. Pt was found alert and oriented, sitting upright in his bed, just completed breakfast. Pt was able to confirm his preference to return home and attend pre-scheduled PT appointment with Madelaine CONNOLLY on 07.03. Pt denied owning any DMEs at home and declined the need for any at this time, other than current arm sling. Pt feels supported by at home for caregiving during recovery. Plan: Pt has discharge order on 06.29. CM Team following for any pending discharge needs. ASHER Meier Discharge Planning/Care Management CM Discharge Assessment Start: 06/30/23 08:16 Freq: Status: Active Protocol: Document 06/30/23 08:52 MW (Rec: 06/30/23 08:55 MW [id number]) Discharge Planning Assessment Assigned Hydroelectric Plant Mechanical Engineer HANNA Moore DPOA/Assigned Designee Name Kayla Flores, Contact Information [phone] Advance Directives? Yes Advance Directives on File No History Provided By Patient,Medical Record Expected Length of Stay 1 Has Patient been admitted in last 30 No days? Prior Living Arrangements House Household Members spouse Type of transporation used prior to Relies on Others admit Independent with ADL's Yes Is patient alert and oriented? Yes Comment No discharge needs anticipated at this time. Barriers to Discharge No Discharge Plan Home Community Services Physical Therapy Transportation Arrangement Pt's anticipates to transport home. Referrals Initiated None needed Additional Comment Pt declined any referrals at this time. Whiteboard Updated in Patient Room with Yes name and ext. # of Hydroelectric Plant Mechanical Engineer Please Provide Date Initial DC 06/30/23 Assessment Was Performed Next Review Type Continued Stay Review
--- NOTE | 2023-06-30 09:30 | PT.IIE ---
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) BPH (benign prostatic hyperplasia) Chronic kidney disease Depression Exposure to potentially hazardous substance Facet arthropathy, lumbar GERD (gastroesophageal reflux disease) Hearing impaired History of Mohs micrographic surgery for skin cancer History of renal dialysis HLD (hyperlipidemia) HTN (hypertension) Multiple pulmonary nodules Other intervertebral disc displacement, lumbosacral region Poor memory Pre-diabetes Right shoulder injury SCC (squamous cell carcinoma) Secondary polycythemia Sleep apnea Thoracic aortic aneurysm without rupture (01/2023) Tremor Physical Therapy Inpatient Evaluation/Re-Eval M1 PT/OT-IP Prior Functional Status Start: 06/30/23 14:47 Freq: NEEDED Status: Active Protocol: Document 06/30/23 09:30 AB (Rec: 06/30/23 15:00 AB [id number]) Medical Review Prior Functional Status Medical History Reviewed Yes Communication able to make needs known Mobility and Gait pt stated that he was independent with all mobilities and ambulation without AD Social History Household Members spouse Living Arrangements House Number of Floors (Floors) Two Floors Number of Stairs To Enter/Railing? pt stays on main level of the house 3 steps B rails to enter the house Home Environment High Toilet,Walk in Shower Home Equipment Straight Cane,Shower Seat with Backrest,Hand Held Shower, Grab Bars In Shower Additional Social History Comment spouse will be able to assist pt M2 PT-IP Current Condition Start: 06/30/23 14:47 Freq: NEEDED Status: Active Protocol: Document 06/30/23 09:30 AB (Rec: 06/30/23 15:00 AB [id number]) Physical Therapy Current Condition Current Condition Evaluation Date 06/30/23 Treatment Diagnosis s/p R TSA reverse; difficulty in walking Onset Date 06/29/23 M3 PT-IP Subjective Start: 06/30/23 14:47 Freq: NEEDED Status: Active Protocol: Document 06/30/23 09:30 AB (Rec: 06/30/23 15:00 [id number]) Subjective Physical Therapy Visit Type Type Initial Evaluation Visit Start Time 09:30 Visit Stop Time 10:25 Number of PARTS CLEANER Visits 0 Physical Therapy Visit Comments Patient Comments agreeable to do PT Therapy Pain Assessment Pain When Pain Assessed At Rest Pain Present Pain Present Pain Reported Location Right Shoulder Intensity 4 Scale Used Numeric (0 - 10) Pain Behaviors Facial Grimacing,Guarding Pain Management Techniques Apply Cold,Distraction, Modification of Treatment,Re- positioning,Timing of Activity with Medications M4 PT-IP Mobility and Gait Start: 06/30/23 14:47 Freq: NEEDED Status: Active Protocol: Document 06/30/23 09:30 AB (Rec: 06/30/23 15:00 [id number]) PT-Bed Mobility Assessment Supine to Sit Supine to Sit Maximum Assistance Sit to Supine Sit to Supine Minimal Assistance,1 Person Assistance PT-Transfer Assessment Sit to and From Stand Sit to and from Stand Standby Assistance Equipment Transfer Assistive Device None,Gait Belt Orthotic/Prosthetic Devices or Brace: Yes Comments Mobility Comments pt supine in bed and agreeable to do PT. spouse in room with pt. obtained PLOF and homse set up from pt and spouse. post-op handout provided and reviewed contents with pt. educated pt regarding R shoulder precautions and NWB. reviewed HEP: pendulum, elbow/hand/ wrist exercises. BP in supine: 130/73. pt completed supine to sit max A and cues. instructed pt to lie back in bed. educated pt regarding techniques for supine<>sit and bed positioning. pt completed supine to sit log roll max A and cues. completed sit to supine min A and max cues. caregiver training conducted. educated spouse on how to assist pt. pt completed supine<>sit again with spouse assisting. pt able to sit on EOB SBA. c/o nausea. BP checked: 123/65. pt sat on EOB and rested. educated spouse with sling managment. assisted pt with sling adjustments. pt also completed elbow/hand/wrist exercises sitting on EOB. pt continues to c/o nausea. BP checked: 121/63. pt completed sit to stand from EOB SBA and ambulated in room without AD SBA. presents with unsteady gait but without LOB. informed spouse to provide assist to pt when up and moving. spouse understood . pt agreed to do stairs. pt completed up/down step stool holding on to L rail SBA. informed spouse to hold on to pt with stairs and agreed. pt requested to go back to bed . completed sit to supine min A and cues. positiioned pt on the bed. call light and table placed within reach. pt and spouse without further concerns. informed nurse regarding pt's c/o nausea. Gait Assessment Gait Gait Assistance Required: Standby Assistance Distance (Feet) 30 Able to Maintain Weight Bearing Status Yes During Gait Assistive Devices Assistive Device None,Gait Belt Orthotic/Prosthetic Devices or Brace: Yes Gait Deviations General Gait Pattern Antalgic,Decreased Stride Length,Decreased Feet Clearance Factors Limiting Gait Function Factors Limiting Gait Function Decreased Activity Tolerance, Decreased Strength,Limited Range of Motion,Pain,Poor Balance,Poor Safety Awareness Stair Climbing Assessment Evaluation Level of Assist On Stairs Standby Assistance Devices Stair Climbing Assistive Devices Left Railing Technique/Endurance Stair Climbing Direction Ascend and Descend Stair Climbing Technique Step to Step Number of Steps Climbed 1 Query Text: Stair Climbing Set # Repetitions (reps) 2 PT-Balance Assessment Sitting Balance and Reactions Static Sitting Balance Ability Normal Dynamic Sitting Balance Ability Good Standing Balance and Reactions Static Standing Balance Ability Good Dynamic Standing Balance Ability Fair Device Used without AD M5 PT-IP Objective Assessments Start: 06/30/23 14:47 Freq: NEEDED Status: Active Protocol: Document 06/30/23 09:30 AB (Rec: 06/30/23 15:00 [id number]) Orientation Orientation/Cognition Level of Alertness Alert Orientation Name,Place,Situation Language Function Ability Hard of Hearing Safety Awareness Decreased Safety Awareness Memory Description No Deficits Noted Gross Range of Motion Lower Extremity ROM Assessment Within Functional Limits Strength Lower Extremity Strength Assessment Within Functional Limits Muscle Tone Muscle Tone WNL Yes M6 PT-IP Treatment Start: 06/30/23 14:47 Freq: NEEDED Status: Active Protocol: Document 06/30/23 09:30 AB (Rec: 06/30/23 15:00 [id number]) Physical Therapy Treatment Exercises Exercises Elbow Flexion/Extension,Wrist ROM,Hand ROM Education Education Provided Precautions,Weight Bearing Status,Post-Op Packet,Safety Brace Education Donning,[place],Patient, Caregiver M7 PT-IP Assessment and Plan Start: 06/30/23 14:47 Freq: NEEDED Status: Active Protocol: Document 06/30/23 09:30 AB (Rec: 06/30/23 15:00 AB [id number]) PT Summary Assessment and Plan Potential Rehabilitation Potential Fair Status of Condition at Evaluation Evolving Summary Impairments Pain,ROM,Strength,Balance, Coordination,Sensation,Tone, Cognition,Bed Mobility, Transfers,Gait,Activity Tolerance Assessment Summary pt is an 83 y/o M s/p R TSA reverse POD 1. pt has R shoulder precautions and is NWB on RUE. pt requiring min to max A for bed mobility and SBA for transfers and ambulation without AD. caregiver training conducted and spouse was able to assist pt with mobility. pt plans to go home with assist and has outpt PT set up. pt may go home when medically stable. Goals Bed Mobility Goal Independent Transfer Goal Independent Gait Goal Independent Gait Distance 200 Other Goals up/down 3 steps 1 rail mod I Days to Meet Goals 5 Frequency of Treatment Frequency Of Treatment Twice a Day Treatment Plan Physical Therapy Treatment Plan Bed Mobility Training,Transfer Training,Gait Training, Therapeutic Exercise,Balance Retraining,Post Op Education, Discharge Planning,Hot or Cold Pack,Neuromuscular Re-ed, Coordination Retraining,Manual Therapy Precautions Shoulder Precautions Sling,PROM,Internal Rotation to Body,No External Rotation, No Abduction,Forward Flexion to 90 degrees,Pendulums Weight Bearing Status Weight Bearing Status Non-Weight Bearing Allowed Weight Bearing Amount (enter % RUE NWB or #) (%) Recommendations To Nursing Amount of Assist Needed 1 Person Assist Discharge Recommendations PT Discharge Recommendations Home with Assistance, Outpatient PT Transportation Needs at Discharge Private Vehicle
[2023-06-30] MEDS: ONDANSETRON 4 MG ODT PO (10:26)
--- NOTE | 2023-06-30 11:53 | PC.NURSE ---
Pt discharged home at 1110, escorted off floor in wheelchair accompanied by spouse and hospital staff. IV removed, discharge teaching completed including new medications, wound care and follow up appointments. Questions answered and concerns addressed. Patient left the floor with all belongings.
== END 2023-06-30 11:54 | disposition home or self-care (01) ==
LOC: OR 10:51 → AC 17:19
PROVIDERS: Orthopaedic Surgery Adult Reconstructive Orthopaedic Surgery; PCP Nurse Practitioner; Referring Provider Orthopaedic Surgery; Visit Provider Orthopaedic Surgery
PROC: (CPT 23472; principal; 2023-06-29 12:45)
DX: M12.811 Other specific arthropathies, not elsewhere classified, right shoulder (principal); G89.18 Other acute postprocedural pain
CPT/HCPCS: 23472; 36415; 64450; 73030; 85027; 94760; 97162; 97530; C1776; J0171; J0690; J2405; J2704; J3010; J7507

== ENCOUNTER 2024-01-18 14:52 | Emergency (ER) | payer MEDICARE, OTHER, SELFPAY ==
[2023-06-29 17:37] VITALS: BMI 31.8
[2024-01-18] VITALS (13 sets, daily range): BP systolic 104–183; BP diastolic 57–103; PULSE 68–94; RESP 14–25; TEMP 36.8; O2SAT 91–96; BMI 32.7
--- NOTE | 2024-01-18 15:10 | DI.RAD.S_ITS ---
PROCEDURE: XR CHEST 1V INDICATIONS: Shortness of breath TECHNIQUE: One view of the chest was acquired. COMPARISON: [facility], , XR CHEST 1V, 08/23/2022, 12:13. FINDINGS: Surgical changes and devices: Reverse right shoulder arthroplasty. Lungs and pleura: Lungs are clear. No pleural effusions or pneumothorax. Mediastinum: Mediastinal contours appear normal. Heart size is normal. Bones and chest wall: No suspicious bony lesions. Overlying soft tissues appear unremarkable. IMPRESSION: No acute cardiopulmonary abnormality is seen. Approved by: Issa Gordon M.D. on 01/18/2024 at 15:32
--- NOTE | 2024-01-18 15:10 | EKG_ITS ---
[address] [address] Test Date: 2024-01-18 Pat Name: Candelario Flores Department: [facility] Room: Gender: Male [employer] Room Supervisor: ROBERT : 1940 Requested By: Order Number: [id number] Reading MD: Rickey Salinas Measurements Intervals [place] Rate: 80 P: VA: QRS: 13 QRSD: 66 T: 78 QT: 352 QTc: 405 Interpretive Statements Atrial fibrillation Electronically Signed On 01-18-2024 17:10:01 PDT by Rickey Salinas
[2024-01-18 15:31] LABS: Add Manual Diff / Slide Review NO; Basophils Absolute Auto 100 /uL (0-100); Basophils Percent Auto 0.7 % (0-2); Eosinophils Absolute Auto 0 /uL (0-450); Eosinophils Percent Auto 0.3 % (2-4); Hematocrit 45.4 % (41-53); Hemoglobin 15.1 g/dL (13.5-17.5); Lymphocytes Absolute Auto 1600 /uL (1100-4500); Lymphocytes Percent Auto 18.6 % (25-40); Mean Corpuscular HGB Conc 33.1 % (30-36); Mean Corpuscular Volume 87.4 fL (80-100); Monocytes Absolute Auto 500 /uL (0-900); Monocytes Percent Auto 6.4 % (3-14); Neutrophils Absolute Auto 6200 /uL (1500-7000); Platelet Count 252 X10^3/uL (150-400); White Blood Cell Count 8.4 X10^3/uL (4.5-11.0)
[2024-01-18 15:39] LABS: INR 1.1 (0.9-1.3); Prothrombin Time 12.8 SECONDS (9.4-12.5)
[2024-01-18 15:43] LABS: Alanine Aminotransferase 23 IU/L (<50); Albumin 3.7 g/dL (3.5-5.0); Albumin Globulin Ratio 1.4 (1.0-2.8); Alkaline Phosphatase 71 U/L (38-126); Aspartate Aminotransferase 22 IU/L (17-59); BUN Creatinine Ratio 24.3 (6-22); Bilirubin Total 0.8 mg/dL (0.2-1.3); Blood Urea Nitrogen 42 mg/dL (9-20); Calcium 8.7 mg/dL (8.4-10.2); Carbon Dioxide 18 mmol/L (22-32); Chloride 109 mmol/L (98-107); Estimated Glomerular Filt Rate 39 mL/min (>60); Globulin 2.7 g/dL (1.7-4.1); Glucose 189 mg/dL (80-110); HEMOLYSIS 15 (0-50); Lactate (Lactic Acid) 1.3 mmol/L (0.7-2.1); Potassium 4.3 mmol/L (3.4-5.1); Sodium 137 mmol/L (137-145); Total Protein 6.4 g/dL (6.3-8.2)
[2024-01-18 15:55] LABS: NT-proBNP (BNP-Adult 18+) 2580 pg/mL (<450); Troponin I < 0.012 ng/mL (0.01-0.034)
--- NOTE | 2024-01-18 17:56 | ED_ITS ---
HPI - SOB/Dyspnea General Chief Complaint: Shortness of Breath/Dyspnea Stated Complaint: SOB, dizziness, hx heart murmur Time Seen by Provider: 01/18/24 17:56 Source: patient Mode of arrival: Wheelchair Limitations: no limitations History of Present Illness HPI Narrative: 84-year-old male with history of renal transplant at [facility] 5 years ago, has nephrology appointment next month, complains of 1 month duration dry cough, 2 weeks' duration of some shortness of breath, particularly worse at night, does not believe he has history of heart failure, no coronary artery disease known, no coronary vessel interventions, this morning had left facial Mohs procedure outpatient, then while standing upright in [facility] felt weak and with some dizziness. No shortness of breath palpitations. No focal weakness or numbness. No spinning sensation. He sat down and feel better. He is here for further evaluation. No injury or trauma. He denies use of chronic blood thinner medications. Related Data Home Medications Medication Instructions Recorded Confirmed chlorthalidone 25 mg tablet 12.5 mg PO DAILY 02/27/19 06/29/23 multivitamin 1 tab PO DAILY 02/27/19 06/29/23 prednisone 5 mg tablet 5 mg PO DAILY 02/27/19 06/29/23 tacrolimus 1 mg capsule, 1 mg PO SEEINSTR 02/27/19 06/29/23 immediate-release tamsulosin 0.4 mg capsule (Flomax) 0.8 mg PO BEDTIME 04/09/19 06/29/23 losartan 25 mg tablet 50 mg PO BID 08/16/20 06/29/23 cholecalciferol (vitamin D3) 50 50 mcg PO DAILY 06/19/23 06/29/23 mcg (2,000 unit) tablet (Vitamin D3) magnesium oxide 420 mg tablet 420 mg PO DAILY 06/19/23 06/29/23 mycophenolate sodium 360 mg 360 mg PO BID Kidney transplant 06/19/23 06/29/23 tablet,delayed release tacrolimus 0.5 mg capsule, 0.5 mg PO QAM 06/19/23 06/29/23 immediate-release Previous Rx's Medication Instructions Recorded aspirin 81 mg tablet,delayed 81 mg PO BID #60 tabs 06/30/23 release furosemide 20 mg tablet (Lasix) 20 mg PO DAILY #7 tabs 01/18/24 Allergies Allergy/AdvReac Type Severity Reaction Status Date / Time lisinopril AdvReac Intermediate Cough Verified 06/29/23 11:17 primidone AdvReac Intermediate Dizziness, Verified 06/29/23 11:17 fatigue simvastatin AdvReac Intermediate Muscle Pain Verified 06/29/23 11:17 zolpidem [From Ambien] AdvReac Intermediate Mood Verified 06/29/23 11:17 swings, agitation tree pollen Allergy Intermediate runny nose Uncoded 06/29/23 11:17 with sneezing and watery eyes Review of Systems Review of Systems Narrative: see HPI Patient History Medical History (Updated 01/18/24 @ 19:15 by Haroon Piper MD) Alcoholism in recovery Hearing impaired History of renal dialysis AV fistula HLD (hyperlipidemia) HTN (hypertension) BPH (benign prostatic hyperplasia) GERD (gastroesophageal reflux disease) Actinic keratosis Depression Sleep apnea Thoracic aortic aneurysm without rupture (01/2023) Chronic kidney disease Multiple pulmonary nodules Tremor History of Mohs micrographic surgery for skin cancer SCC (squamous cell carcinoma) 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) Pre-diabetes Poor memory Exposure to potentially hazardous substance Secondary polycythemia Acromioclavicular joint separation, type 1 Right shoulder injury Facet arthropathy, lumbar Other intervertebral disc displacement, lumbosacral region Surgical History (Updated 01/18/24 @ 18:28 by Haroon Piper MD) H/O vasectomy (1980) History of back surgery 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 HEAD: Atraumatic. Normocephalic. EYES: Pupils equal round and reactive. Extraocular motions intact. No scleral icterus. No injection or drainage. ENT: Nose without bleeding, purulent drainage. Throat without erythema, tonsillar hypertrophy or exudate. Airway patent. Left vertical bandage in place preauricular space jaw/cheek area, no gross facial edema. NECK: Trachea midline. Non tender. Moves neck well. CARDIOVASCULAR: Regular rate and rhythm without murmurs, gallops, or rubs. RESPIRATORY: Clear to auscultation. Breath sounds equal bilaterally. No wheezes, rales, or rhonchi. GASTROINTESTINAL: Abdomen soft, non-tender, nondistended. EXTREMITIES: No edema or joint tenderness. BACK: Nontender without deformity or crepitance. No flank tenderness. NEURO: AOx3. Motor functions grossly nonfocal SKIN: No rash or erythema of visible areas Initial Vital Signs Initial Vital Signs: Vital Signs Temperature 98.2 F 01/18/24 15:05 Pulse Rate 75 01/18/24 15:05 Respiratory Rate 20 01/18/24 15:05 Blood Pressure 111/57 L 01/18/24 15:05 Pulse Oximetry 96 01/18/24 15:05 Oxygen Delivery Method Room Air 01/18/24 15:05 Course Orders Ordered: Discontinued Medications Furosemide (Furosemide 40 Mg/4 Ml Vial) 40 mg IV NOW ONE Stop: 01/18/24 18:00 Last Admin: 01/18/24 18:09 Dose: 40 mg Documented By: LOUIE Vital Signs Vital signs: Vital Signs - 8 hr 01/18/24 15:05 01/18/24 16:43 01/18/24 17:00 Temperature 98.2 F Pulse Rate 75 94 H Respiratory Rate 20 Blood Pressure 111/57 L 104/66 Pulse Oximetry 96 91 Oxygen Delivery Method Room Air 01/18/24 17:00 01/18/24 17:30 01/18/24 17:30 Temperature Pulse Rate 71 75 Respiratory Rate 24 24 Blood Pressure 112/79 Pulse Oximetry 94 94 Oxygen Delivery Method 01/18/24 18:00 01/18/24 18:00 01/18/24 18:36 Temperature Pulse Rate 68 77 Respiratory Rate 24 Blood Pressure 113/76 Pulse Oximetry 94 96 Oxygen Delivery Method 01/18/24 18:47 01/18/24 18:47 01/18/24 19:00 Temperature Pulse Rate 70 Respiratory Rate 22 Blood Pressure 148/91 H 149/82 H Pulse Oximetry 95 Oxygen Delivery Method 01/18/24 19:00 01/18/24 19:17 01/18/24 19:17 Temperature Pulse Rate 70 75 Respiratory Rate 19 23 Blood Pressure 183/103 H Pulse Oximetry 94 95 Oxygen Delivery Method 01/18/24 19:30 01/18/24 19:30 01/18/24 20:00 Temperature Pulse Rate 75 Respiratory Rate 22 Blood Pressure 162/96 H 140/97 H Pulse Oximetry 93 Oxygen Delivery Method 01/18/24 20:00 Temperature Pulse Rate 78 Respiratory Rate 25 H Blood Pressure Pulse Oximetry 94 Oxygen Delivery Method MDM - SOB/Dyspnea Lab Data Attestation: I reviewed the patient's lab results. Lab results narrative: White blood cell count 8400, hemoglobin 15, platelets adequate. Serum CO2 18, BUN 42 with creatinine 1.73, similar creatinine elevations in the past. Glucose 189. Sodium 137, potassium 4.3. Troponin negative/unmeasurable. BNP 2580 elevated 01/18/24 15:21 01/18/24 15:21 Labs: Lab Results 01/18/24 Range/Units 15:21 WBC 8.4 (4.5-11.0) X10^3/uL RBC 5.20 (4.5-5.9) X10^6/uL Hgb 15.1 (13.5-17.5) g/dL Hct 45.4 (41-53) % MCV 87.4 (80-100) fL MCH 29.0 (26-34) PG MCHC 33.1 (30-36) % RDW 15.0 H (11.6-14.8) % Plt Count 252 (150-400) X10^3/uL Neut % (Auto) 74.0 (50-75) % Lymph % (Auto) 18.6 L (25-40) % [place] % (Auto) 6.4 (3-14) % Eos % (Auto) 0.3 L (2-4) % Baso % (Auto) 0.7 (0-2) % Neut # (Auto) 6200 (5321-3315) /uL Lymph # (Auto) 1600 (9896-7881) /uL [place] # (Auto) 500 (0-900) /uL Eos # (Auto) 0 (0-450) /uL Baso # (Auto) 100 (0-100) /uL PT 12.8 H (9.4-12.5) SECONDS INR 1.1 (0.9-1.3) Sodium 137 (137-145) mmol/L Potassium 4.3 (3.4-5.1) mmol/L Chloride 109 H (98-107) mmol/L Carbon Dioxide 18 L (22-32) mmol/L BUN 42 H (9-20) mg/dL Creatinine 1.73 H (0.66-1.25) mg/dL Estimated GFR 39 L (>60) mL/min BUN/Creatinine Ratio 24.3 H (6-22) Glucose 189 H (80-110) mg/dL Lactate 1.3 (0.7-2.1) mmol/L Calcium 8.7 (8.4-10.2) mg/dL Total Bilirubin 0.8 (0.2-1.3) mg/dL AST 22 (17-59) IU/L ALT 23 (<50) IU/L Alkaline Phosphatase 71 (38-126) U/L Troponin I < 0.012 (0.01-0.034) ng/mL NT-Pro-B Natriuret Pep 2580 H (<450) pg/mL Total Protein 6.4 (6.3-8.2) g/dL Albumin 3.7 (3.5-5.0) g/dL Globulin 2.7 (1.7-4.1) g/dL Albumin/Globulin Ratio 1.4 (1.0-2.8) Imaging Data Chest x-ray: Radiologist's Impression: [address] [address] XRay Report Signed Patient: Candelario Flores MR#: [id number] : 1940 Acct:[id number] Age/Sex: 84 / M Date of Service: 01/18/24 Loc: ED Accession Number: [id number] Procedure: XR chest 1V Ordering Provider: Elaine Tate MD PROCEDURE: XR CHEST 1V INDICATIONS: Shortness of breath TECHNIQUE: One view of the chest was acquired. COMPARISON: [facility], CR, XR CHEST 1V, 08/23/2022, 12:13. FINDINGS: Surgical changes and devices: Reverse right shoulder arthroplasty. Lungs and pleura: Lungs are clear. No pleural effusions or pneumothorax. Mediastinum: Mediastinal contours appear normal. Heart size is normal. Bones and chest wall: No suspicious bony lesions. Overlying soft tissues appear unremarkable. IMPRESSION: No acute cardiopulmonary abnormality is seen. Approved by: Issa Gordon M.D. on 01/18/2024 at 15:32 ECG Data Attestation: I personally reviewed and interpreted this ECG as follows: Interpretation: Atrial fibrillation with ventricular response rate 80, no obvious ST segment elevation or depression changes. QRS 66, QTC 405. MDM Narrative Medical decision making narrative: 84-year-old male with history of renal transplant, on chronic immunosuppression prednisone and tacrolimus, renal insufficiency, recent Mohs left facial procedure this morning, 3 weeks duration shortness of breath, cough for about 4 weeks duration, weakness while standing with some dizziness at [facility] earlier today. Chest x-ray unremarkable. EKG shows atrial fibrillation, not mentioned on his problem list. Ventricular rate 80 noted. Not on chronic blood thinner medications. Initial troponin negative. BNP 2580 noted, normotensive, electrolytes okay, will give IV Lasix dose. We will repeat interval troponin. Repeat troponin also negative. 2029, case discussed with [facility] intake, await call back from transplant team. No call back from [facility], patient would like to leave with . Amenable to taking low dose Lasix for 5-7 days, prescription sent. Continue chronic medications. Consider contacting his nephrologists and/or his transplant service providers tomorrow Monday during regular hours. Discharge Plan Departure Patient Disposition: Home Clinical Impression: Dizziness, Atrial fibrillation, History of kidney transplant, Shortness of breath Activity Restrictions/Additional Instructions: History of kidney transplantation, recent facial dermatology Mohs excision procedure earlier today, weakness and dizziness at [facility] earlier. EKG showed new rhythm atrial fibrillation, without obvious heart attack changes, blood tests not suspicious at this time for heart attack. CT head did not show any obvious stroke changes. Your kidney function was elevated, so we had not do IV contrast for angio studies of the head and neck vessels. We did discuss possible admission to get further studies, declined for now, you wanted to go home. We did discuss also Eliquis anticoagulation, given you have a history of new diagnosis atrial fibrillation, which can be a risk factor for getting stroke, however you also have a history of aortic aneurysm, and are reluctant to start any blood thinner medications at this time. Discuss this issue further with your regular providers in consultation in follow up. Your chest x-ray was unremarkable. You have had weeks' duration of cough and some degree of shortness of breath. You were BNP blood test was elevated, consider some degree of overload congestive heart failure. Consider echocardiogram ultrasound testing of the heart, to be arranged as an outpatient for now. We did attempt reaching kidney transplant services at [facility], no timely call back, you would like to go home. For now we will start oral Lasix dose 20 mg once daily for 1 week, follow up with your regular doctor in the next few days to reassess symptoms and your kidney function tests. At that time you could consider further evaluation echocardiogram, also inquire about feasibility of starting Eliquis or other anticoagulation strategy to help prevent stroke. Consider oral aspirin daily for now. Recheck with your regular doctor Monday in clinic. Return to this/nearest emergency department for any change worsening symptoms or any concerns Prescriptions: New furosemide [Lasix] 20 mg tablet 20 mg PO DAILY Qty: 7 0RF No Action magnesium oxide 420 mg Tablet 420 mg PO DAILY tacrolimus 0.5 mg Capsule 0.5 mg PO QAM mycophenolate sodium 360 mg Tablet,Delayed Release (Dr/Ec) 360 mg PO BID cholecalciferol (vitamin D3) [Vitamin D3] 50 mcg (2,000 unit) Tablet 50 mcg PO DAILY aspirin 81 mg Tablet,Delayed Release (Dr/Ec) 81 mg PO BID Qty: 60 0RF tacrolimus 1 mg capsule 1 mg PO SEEINSTR Patient Comments: 1mg qam, 2mg qpm prednisone 5 mg tablet 5 mg PO DAILY multivitamin Tablet 1 tab PO DAILY chlorthalidone 25 mg tablet 12.5 mg PO DAILY tamsulosin [Flomax] 0.4 mg capsule 0.8 mg PO BEDTIME losartan 25 mg tablet 50 mg PO BID Referrals: Sangeeta Patel ARNP [Primary Care Provider] - Stand Alone Forms: Patient Portal/API/Survey
[2024-01-18] MEDS: FUROSEMIDE 40 MG/4 ML VIAL IV (18:09)
--- NOTE | 2024-01-18 18:21 | DI.CT.S_ITS ---
PROCEDURE: CT HEAD/BRAIN WO CON INDICATIONS: dizzy, new dx Afib, normal rate, eval for stroke TECHNIQUE: Noncontrast 4.5 mm thick angled axial sections acquired from the foramen magnum to the vertex, with coronal and sagittal reformats. For radiation dose reduction, the following was used: automated exposure control, adjustment of mA and/or kV according to patient size. COMPARISON: [facility], CT, CT HEAD WITHOUT CONTRAST, 06/07/2021, 14:03. [facility], CT, CT HEAD/BRAIN WO CON, 08/23/2022, 12:34. FINDINGS: Image quality: Mild streak artifact can be seen through the skull base. CSF spaces: Basal cisterns are patent. No extra-axial fluid collections. The ventricles are symmetric in size and shape. Brain: No intracranial bleeds or masses. There is cerebral volume loss for age, with resultant ventricular and sulcal prominence. There are periventricular and deep white matter chronic small vessel ischemic changes. There is intracranial internal carotid artery atherosclerosis. Skull and face: Calvarium and visualized facial bones appear intact, without suspicious lesions. Sinuses: Visualized sinuses and mastoids are clear. IMPRESSION: No acute intracranial hemorrhage is seen. No acute intracranial pathology. If there is strong clinical suspicion for an acute stroke, please consider a brain MRI for further evaluation, as it is more sensitive (assuming that there is no contraindication to MRI). Dictated by: Jack Pearce M.D. on 01/18/2024 at 17:51 Approved by: Jack Pearce M.D. on 01/18/2024 at 17:52
== END 2024-01-18 21:04 | disposition home or self-care (01) ==
PROVIDERS: Emergency Medicine; Emergency Provider Emergency Medicine; PCP Nurse Practitioner
DX: R42 Dizziness and giddiness (principal); I48.91 Unspecified atrial fibrillation; R06.02 Shortness of breath
CPT/HCPCS: 36415; 70450; 71045; 80053; 83605; 83880; 84484; 85025; 85610; 93005; 96374; 99284; J1940